=== PATIENT | female | born 1950 | race Hispanic/Latino ===

== ENCOUNTER → 2018-01-10 | Outpatient (CLI) | payer BC ==
[~2018-01-10] MED LIST: CLONAZEPAM1 MG PO; METFORMIN HCL500 MG PO; PREMPRO 0.3 MG1 EACH PO; VIT D PO
--- NOTE | 2018-01-17 08:35 | Diagnostic Imaging Report ---
#[id number] - MGSCRBIL #BILATERAL DIGITAL SCREENING MAMMOGRAM WITH CAD: 01/10/2018 CLINICAL: Routine screening. Comparison is made to exams dated: 01/05/2017 mammogram and 12/11/2014 mammogram - [facility]. Current study contains 4 films. The tissue of both breasts is predominantly fatty. Current study was also evaluated with a Computer Aided Detection (CAD) system. There are benign lymph nodes in both breasts. There also is a benign calcification in the left breast. No significant masses, calcifications, or other findings are seen in either breast. There has been no significant interval change. IMPRESSION: BENIGN There is no mammographic evidence of malignancy. A 1 year screening mammogram is recommended. The patient will be notified by letter of the results. 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
== END ==
LOC: MAMMO 13:48
PROVIDERS: ATTEND Internal Medicine
DX: Z12.31 Encounter for screening mammogram for malignant neoplasm of breast (principal)
CPT/HCPCS: 77067

== ENCOUNTER → 2018-01-28 | Outpatient (CLI) | payer SELFPAY ==
[~2018-01-28] MED LIST changes: +IOPAMIDOL 370 MG/ML 200 ML INFUS..BTL INJ ONE; +SODIUM CHLORIDE 0.9% 50ML 50 ML ONE
[2018-01-28 18:42] LABS: BLOOD UREA NITROGEN 9 mg/dL (7-26); BUN/CREATININE RATIO 12 (6-25); CREATININE, SERUM 0.73 mg/dL (0.57-1.11); EST GLOMERULAR FILTRATION RATE > 60 ML/MIN (60-)
--- NOTE | 2018-01-28 23:45 | Diagnostic Imaging Report ---
EXAM: CT ABDOMEN W DATE: 01/28/2018 5:04 PM Time stamp on Exam: 1901 hours INDICATION: Elevated LFTs, right upper quadrant pain COMPARISON: CT of the abdomen and pelvis September 21, 2015 TECHNIQUE: The abdomen was scanned using a multidetector helical scanner. Coronal and sagittal reformations were obtained. Dose modulation, iterative reconstruction, and/or weight based adjustment of the mA/kV was utilized to reduce the radiation dose to as low as reasonably achievable. Routine protocol performed. IV Contrast: 100 cc Isovue-370 Oral Contrast: Water CTDIvol has been reviewed. It is below the limits set by the Radiation Protocol Committee (RPC). FINDINGS: LOWER THORAX: Stable hypodensities in the medial segment of the lobe left lobe of the liver measuring 6 mm and 9 mm. Stable hypodensities in the posterior inferior right lobe of the liver measuring 6 mm and 1.2 cm. LIVER: No masses BILIARY: The gallbladder is unremarkable. No ductal dilation. SPLEEN: No masses PANCREAS: No masses ADRENALS: Stable very mild thickening of the left adrenal gland. KIDNEYS: Symmetrically perfused. No hydronephrosis. No enhancing masses. GI TRACT: No distention, wall thickening or evidence of obstruction in the partially visualized bowel. VESSELS: Unremarkable PERITONEUM/RETROPERITONEUM: No free air or fluid LYMPH NODES: No lymphadenopathy SOFT TISSUES: Unremarkable BONES: No suspicious bone lesions. IMPRESSION: No interval change in appearance of the abdomen since prior CT in 2015. Signed by: Dr. Mala Raymundo M.D. on 01/28/2018 11:41 PM
== END ==
LOC: CT 16:41
PROVIDERS: ATTEND Internal Medicine
DX: K76.0 Fatty (change of) liver, not elsewhere classified (principal); R10.84 Generalized abdominal pain; R10.11 Right upper quadrant pain; R76.8 Other specified abnormal immunological findings in serum; R74.8 Abnormal levels of other serum enzymes
CPT/HCPCS: 36415; 74160; 82565; 84520; Q9967

== ENCOUNTER 2018-06-16 20:07 | Emergency (ER) | payer BC ==
[~2018-06-16] VITALS: Ht 160 cm; Wt 84.8 kg
[~2018-06-16 20:07] MED LIST changes: -IOPAMIDOL 370 MG/ML 200 ML INFUS..BTL INJ ONE; -SODIUM CHLORIDE 0.9% 50ML 50 ML ONE
--- OUTSIDE RECORDS SUMMARY | 2018-06-16 20:11 | XMS REPORT | Summary of Care ---
Author Author [facility] Address Unknown Phone Unavailable Encounter HQ Leisa(FIN) [id number] Date(s): 07/21/17 - 07/21/17 [facility] [address] [place] [place] [address], [address] [place] [address]- [phone] Attending Physician: Tiffanie Rosales MD Vital Signs No data available for this section Problem List Condition Effective Dates Status Health Status Informant Acute UTI(Confirmed) Active Benign essential Active HTN(Confirmed) Breast cancer Active screening(Confirmed) Pap smear for < 08/27/16 Resolved cervical cancer screening(Confirmed) B12 Active deficiency(Confirmed ) Low serum vitamin Active D(Confirmed) Diabetes mellitus Active type 2(Confirmed)1 DM type 2 with Active diabetic peripheral neuropathy(Confirmed ) Disorder of vision2 01/31/14 Active Diverticular disease 04/13/13 Active of colon3 Fatigue4 03/21/13 Active S/P total knee Active replacement(Confirme d) Hyperlipidemia5 03/21/13 Active Liver cyst6 01/31/14 Active Abnormal liver Active enzymes(Confirmed) Mild major Active depression(Confirmed ) Mixed anxiety and 03/21/13 Active depressive disorder7 Hyperlipidemia, < 08/27/16 Resolved mixed(Confirmed) Yeast Active infection(Confirmed) Obesity8 10/12/13 Active Onychomycosis(Confir Active med) DJD (degenerative Active joint disease)(Confirmed) Osteopenia9, 10 06/15/14 Active Annual physical Active exam(Confirmed) Preoperative Active clearance(Confirmed) Colon cancer Active screening(Confirmed) Sleep apnea11 03/21/13 Active Steatosis of liver12 01/31/14 Active Type 2 diabetes 03/21/13 Resolved [id number] Vaginal Active irritation(Confirmed ) 1Automatically added by Discern Expert with order of Add Problem Diabetes Type II on December 02, 2016 11:54:47 CDT with order ID: [id number] entered by Tiffanie Rosales. 2Data migrated from [employer] on 07/28/14. 3Data migrated from [employer] on 07/28/14. 4Data migrated from [employer] on 07/28/14. 5Data migrated from [employer] on 07/28/14. 6Data migrated from [employer] on 07/28/14. 7Data migrated from [employer] on 07/28/14. 8Data migrated from [employer] on 07/28/14. 9Data migrated from [employer] on 09/05/14. 10Data migrated from [employer] on 07/31/14. 11Data migrated from [employer] on 07/28/14. 12Data migrated from [employer] on 07/28/14. 13Data migrated from [employer] on 07/28/14. Allergies, Adverse Reactions, Alerts Substance Reaction Severity Status NKDA Active Medications No data available for this section Results No data available for this section Immunizations Given and Recorded Vaccine Date Status Refusal Reason influenza virus vaccine, inactivated 12/09/16 Given influenza virus vaccine, inactivated 12/14/14 Given influenza virus vaccine, inactivated1 04/13/13 Given pneumococcal 23-valent vaccine 12/04/15 Recorded Hx influenza vaccine-unspecified2 04/13/13 Given 1Result Comment: fluzone (>3 yrs.) [[id number]]. Migrated from OBS ; Data migrated from [employer] on 04/02/2015. 2Result Comment: done. Migrated from OBS ; Data migrated from [employer] on 04/02/2015. Procedures Procedure Date Related Diagnosis Body Site Status Mammogram 12/11/14 Completed Papanicolaou smear taken 12/10/14 Completed Examination of foot 06/15/14 Completed Nail operations1 04/2014 Completed Eye examination2 03/2014 Completed Bone density scan3 11/2013 Completed Nasal operation4 08/2013 Completed Colonoscopy5, 6 04/2009 Completed 1right toe ingrown nail 2per patient 3osteopenia at [facility] [address] [place] [address] 5Angioectasia, diverticulosis, internal hemorroids @ Dr. Temple 6Repeat 2019 Social History Social History Type Response Substance Abuse Use: None. 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 Alcohol Never Smoking Status Never smoker; Exposure to Tobacco Smoke None; Cigarette Smoking Last 365 Days No; Reg Smoking Cessation Counseling No entered on: 04/22/17 1none Assessment and Plan No data available for this section
--- OUTSIDE RECORDS SUMMARY | 2018-06-16 20:11 | XMS REPORT | Summary of Care ---
Author Author [facility] Organization [facility] Address Unknown Phone Unavailable Encounter HQ Leisa(FIN) [id number] Date(s): 04/09/17 - 04/09/17 [facility] [address] [place] [address], [address] [place] [address]- [phone] Attending Physician: Tiffanie Rosales MD Vital Signs [...] 01/31/14 Active Type 2 diabetes 03/21/13 Resolved [id number] Vaginal Active irritation(Confirmed ) 1Automatically added by Discern Expert with order of Add Problem Diabetes Type II on December 02, 2016 11:54:47 CDT with order ID: [id number] entered by Tiffanie Rosales. 2Data migrated from [...] 04/13/13 Given 1Result Comment: fluzone (>3 yrs.) [[id number]]. Migrated from OBS ; Data migrated from [...] toe ingrown nail 2per patient 3osteopenia at [facility] [address] [place] [address] 5Angioectasia, diverticulosis, internal hemorroids @ Dr. Temple 6Repeat 2019 Social History Social History Type Response Substance Abuse Use: None. 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 Alcohol Never Smoking Status Never smoker; Exposure to Tobacco Smoke None; Cigarette Smoking Last 365 Days No; Reg Smoking Cessation Counseling No entered on: 04/22/17 1none Assessment and Plan No data available for this section
--- OUTSIDE RECORDS SUMMARY | 2018-06-16 20:11 | XMS REPORT | Continuity of Care Document ---
Author Author [facility] Address Unknown Phone Unavailable Problems Problem Status Onset Date Classification Date Reported Comments Source Pap smear for cervical cancer screening Resolved 08/27/2016 Problem 05/13/2018 [facility] Osteopenia<sup>9, 10</sup> Active 06/15/2014 Problem 05/13/2018 Data migrated from [employer] on 07/31/14. [facility] Disorder of vision<sup>2</sup> Active 01/31/2014 Problem 05/13/2018 Data migrated from [employer] on 07/28/14. [facility] Liver cyst<sup>6</sup> Active 01/31/2014 Problem 05/13/2018 Data migrated from [employer] on 07/28/14. [facility] Steatosis of liver<sup>12</sup> Active 01/31/2014 Problem 05/13/2018 Data migrated from [employer] on 07/28/14. [facility] Obesity<sup>8</sup> Active 10/12/2013 Problem 05/13/2018 Data migrated from [employer] on 07/28/14. [facility] Diverticular disease of colon<sup>3</sup> Active 04/13/2013 Problem 05/13/2018 Data migrated from [employer] on 07/28/14. [facility] Fatigue<sup>4</sup> Active 03/21/2013 Problem 05/13/2018 Data migrated from [employer] on 07/28/14. [facility] Hyperlipidemia<sup>5</sup> Active 03/21/2013 Problem 05/13/2018 Data migrated from [employer] on 07/28/14. [facility] Mixed anxiety and depressive disorder<sup>7</sup> Active 03/21/2013 Problem 05/13/2018 Data migrated from [employer] on 07/28/14. [facility] Sleep apnea<sup>11</sup> Active 03/21/2013 Problem 05/13/2018 Data migrated from [employer] on 07/28/14. [facility] Type 2 diabetes mellitus<sup>13</sup> Resolved 03/21/2013 Problem 05/13/2018 Data migrated from [employer] on 07/28/14. [facility] 864.11 - LIVER HEMATOM/C Active 12/02/2010 [facility] [place] Hyperlipidemia, mixed Active Problem 05/13/2018 [facility] Acute UTI Active Problem 05/13/2018 [facility] Benign essential HTN Active Problem 05/13/2018 [facility] Breast cancer screening Active Problem 05/13/2018 [facility] B12 deficiency Active Problem 05/13/2018 [facility] Low serum vitamin D Active Problem 05/13/2018 [facility] Diabetes mellitus type 2<sup>1</sup> Active Problem 05/13/2018 Automatically added by Discern Expert with order of Add Problem Diabetes Type II on December 02, 2016 11:54:47 CDT with order ID: [id number] entered by Tiffanie Rosales. [facility] DM type 2 with diabetic peripheral neuropathy Active Problem 05/13/2018 [facility] S/P total knee replacement Active Problem 05/13/2018 [facility] Abnormal liver enzymes Active Problem 05/13/2018 [facility] Mild major depression Active Problem 05/13/2018 [facility] Yeast infection Active Problem 05/13/2018 [facility] Onychomycosis Active Problem 05/13/2018 [facility] DJD (<span ID="[id number]">Confirmed</span>) Active Problem 05/13/2018 [facility] Preoperative clearance Active Problem 05/13/2018 [facility] Vaginal irritation Active Problem 05/13/2018 [facility] Non-alcoholic fatty liver disease Active Problem 05/13/2018 [facility] Elevated antinuclear antibody level(<span ID="[id number]">Confirmed</span>) Active Problem 05/13/2018 [facility] Medications Medication Details Route Status Patient Instructions Ordering Provider Order Date Source amLODIPine 5 mg oral tablet 5 mg=1 tab, PO, Daily, # 90 tab, 1 Refill(s), Pharmacy: [facility] [id number] Active 05/11/2018 [facility] glimepiride 4 mg oral tablet 4 mg=1 tab, PO, BID, # 180 tab, 1 Refill(s), Pharmacy: [facility] [id number] Active 05/11/2018 [facility] losartan 100 mg oral tablet 100 mg=1 tab, PO, Daily, # 90 tab, 1 Refill(s), Pharmacy: [facility] [address] Active 05/11/2018 [facility] Metformin hydrochloride 1000 MG Oral Tablet 1,000 mg=1 tab, PO, BID, # 180 tab, 3 Refill(s), Pharmacy: [facility] [id number] Active 05/11/2018 [facility] atorvastatin 10 mg oral tablet 10 mg=1 tab, PO, Bedtime, # 90 tab, 1 Refill(s), Pharmacy: [facility] [id number] Active 05/11/2018 [facility] mirtazapine 30 mg oral tablet 30 mg=1 tab, PO, Bedtime, # 90 tab, 0 Refill(s), Pharmacy: [facility] [id number] Active 05/11/2018 [facility] Metformin hydrochloride 1000 MG Oral Tablet 1,000 mg=1 tab, PO, BID, # 180 tab, 3 Refill(s), Pharmacy: [facility] [id number] Active 08/04/2017 [facility] mirtazapine 30 mg oral tablet 30 mg=1 tab, PO, Bedtime, # 90 tab, 1 Refill(s), Pharmacy: [facility] [id number] Active 04/22/2017 [facility] Terbinafine hydrochloride 10 MG/ML Topical Wren 1 spray, TOP, BID, X 60 day, # 125 mL, 1 Refill(s), Pharmacy: [facility] [id number] Active 04/22/2017 [facility] mirtazapine 15 mg oral tablet 15 mg=1 tab, PO, Bedtime, # 90 tab, 1 Refill(s), Pharmacy: [facility] [address] Inactive 04/22/2017 [facility] Allergies, Adverse Reactions, Alerts Substance Category Reaction Severity Reaction type Status Date Reported Comments Source Immunizations Immunization Date Given Site Status Last Updated Comments Source pneumococcal 13-valent vaccine<sup>1</sup> 05/11/2018 Left Deltoid completed Vera Result Comment: Patient tolerated well [facility] influenza virus vaccine, inactivated<sup>2</sup> 01/11/2018 Left Deltoid completed Jones Result Comment: Patient waited 15 min with no reaction. [facility] influenza virus vaccine, inactivated 12/09/2016 Right Deltoid completed [facility] pneumococcal 23-valent vaccine 12/04/2015 completed [facility] influenza virus vaccine, inactivated 12/14/2014 Right Deltoid completed [facility] Hx influenza vaccine-unspecified<sup>2</sup> 04/13/2013 completed GE Result Comment: done. Migrated from OBS ; Data migrated from [employer] on 04/02/2015. [facility] Hx influenza vaccine-unspecified<sup>4</sup> 04/13/2013 completed GE Result Comment: done. Migrated from OBS ; Data migrated from [employer] on 04/02/2015. [facility] influenza virus vaccine, inactivated<sup>1</sup> 04/13/2013 Right Deltoid completed GE Result Comment: fluzone (>3 yrs.) [[id number]]. Migrated from OBS ; Data migrated from [employer] on 04/02/2015. [facility] influenza virus vaccine, inactivated<sup>3</sup> 04/13/2013 Right Deltoid completed GE Result Comment: fluzone (>3 yrs.) [[id number]]. Migrated from OBS ; Data migrated from [employer] on 04/02/2015. [facility] Results Order Name Results Value Reference Range Date Interpretation Comments Source Vital Signs Vital Sign Value Date Comments Source BMI Calculated 34.61 05/11/2018 [facility] Height 160.02 cm 05/11/2018 [facility] Weight 88.636 05/11/2018 [facility] Respitory Rate 16 05/11/2018 [facility] Heart Rate 73 05/11/2018 [facility] Systolic (mm Hg) 155 05/11/2018 [facility] Diastolic (mm Hg) 90 05/11/2018 [facility] Temperature Oral (F) 97.0 F 05/11/2018 [facility] Weight 80.909 04/22/2017 [facility] BMI Calculated 31.6 04/22/2017 [facility] Height 160.02 cm 04/22/2017 [facility] Systolic (mm Hg) 133 04/22/2017 [facility] Diastolic (mm Hg) 85 04/22/2017 [facility] Temperature Oral (F) 97.9 F 04/22/2017 [facility] Respitory Rate 14 04/22/2017 [facility] Heart Rate 86 04/22/2017 [facility] Encounters Location Location Details Encounter Type Encounter Number Reason For Visit Attending Provider ADM Date DC Date Status Source OD [id number] 864.11 - LIVER HEMATOM/C KAHLIL SMITH 12/05/2010 12/05/2010 Active [facility] [place] Outpatient [id number] CRYSTAL STEVENS 10/12/2014 Active [facility] [id number] CRYSTAL STEVENS 12/14/2014 Active [facility] Outpatient [id number] TIFFANIE YANCEY 04/03/2015 Active [facility] Outpatient [id number] TIFFANIE YANCEY 04/10/2015 Active [facility] Outpatient [id number] CRYSTAL STEVENS 08/07/2015 Active [facility] Outpatient [id number] TIFFANIE YANCEY 08/21/2015 Active [facility] Outpatient [id number] TIFFANIE YANCEY 09/04/2015 Active [facility] Outpatient [id number] TIFFANIE YANCEY 12/04/2015 Active [facility] Outpatient [id number] TIFFANIE YANCEY 08/27/2016 Active [facility] Outpatient [id number] TIFFANIE YANCEY 09/04/2016 Active [facility] Outpatient [id number] TIFFANIE YANCEY 09/18/2016 Active [facility] Outpatient [id number] TIFFANIE YANCEY 11/10/2016 Active [facility] Outpatient [id number] TIFFANIE YANCEY 12/02/2016 Active [facility] Outpatient [id number] TIFFANIE YANCEY 12/09/2016 Active [facility] Outpatient [id number] TIFFANIE YANCEY 04/09/2017 Active [facility] Pre-Reg [id number] Tiffanie Polk 04/09/2017 04/09/2017 [facility] Outpatient [id number] TIFFANIE YANCEY 04/22/2017 Active [facility] [id number] Tiffanie Polk 04/22/2017 04/23/2017 [facility] Outpatient [id number] TIFFANIE YANCEY 07/21/2017 Active [facility] Pre-Reg [id number] Tiffanie Yancey Polk 07/21/2017 07/21/2017 Medical Group [facility] Primary [facility] Phone Message [id number] 08/04/2017 08/06/2017 [facility] Outpatient [id number] TIFFANIE YANCEY 08/19/2017 Active [facility] Primary [facility] Pre-Reg [id number] Tiffanie Yancey Polk 08/19/2017 08/19/2017 [facility] Outpatient [id number] TIFFANIE YANCEY 12/16/2017 Active [facility] Outpatient [id number] TIFFANIE YANCEY 01/11/2018 Active [facility] Outpatient [id number] TIFFANIE YANCEY 01/17/2018 Active [facility] Outpatient [id number] TIFFANIE YANCEY 02/10/2018 Active [facility] Outpatient [id number] TIFFANIE YANCEY 05/11/2018 Active [facility] [id number] Tiffanie Yancey Polk 05/11/2018 05/12/2018 [facility] Outpatient [id number] TIFFANIE YANCEY 08/12/2018 Active [facility] Procedures Procedure Code Date Perfomer Comments Source Mammogram - screening<sup>1</sup> [id number] 01/10/2018 Normal Medical [facility] Mammogram [id number] 12/11/2014 Medical [facility] Papanicolaou smear taken [id number] 12/10/2014 Medical [facility] Examination of foot [id number] 06/15/2014 [facility] Nail operations<sup>1</sup> 816701163 04/29/2014 right toe ingrown nail [facility] Nail operations<sup>2</sup> 050362766 04/29/2014 right toe ingrown nail [facility] Eye examination<sup>2</sup> 53832819 03/01/2014 per patient [facility] Eye examination<sup>3</sup> 18465866 03/01/2014 per patient [facility] Bone density scan<sup>3</sup> 405568400 11/29/2013 osteopenia at [facility] [employer] Bone density scan<sup>4</sup> [id number] 11/29/2013 osteopenia at [employer] [facility] Nasal operation<sup>4</sup> 52204756 08/29/2013 [facility] Nasal operation<sup>5</sup> 18067407 08/29/2013 [facility] Colonoscopy<sup>5, 6</sup> [id number] 04/01/2009 Angioectasia, diverticulosis, internal hemorroids @ Dr. Mata 2019 [facility] Colonoscopy<sup>6, 7</sup> [id number] 04/01/2009 Angioectasia, diverticulosis, internal hemorroids @ Dr. Mata 2019 [facility] Cataract surgery [id number] [facility]
--- OUTSIDE RECORDS SUMMARY | 2018-06-16 20:11 | XMS REPORT | Clinical Summary ---
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 Active metFORMIN (GLUCOPHAGE) TK 1 T PO BID 1 1,000 mg tablet MEALS 7 Active omega-3 acid ethyl esters TK 1 C PO TID 2 (LOVAZA) 1 gram capsule 7 Active valsartan (DIOVAN) 320 MG TK 1 T PO QD 0 tablet 7 Active hydrocortisone 1 % cream APPLY A THIN 0 LAYER AA BID 7 X 10 DAYS Active nystatin-triamcinolone APPLY 0 (MYCOLOG II) 100,000-0.1 TOPICALLY RO 7 unit/g-% cream AFFECTED AREA BID PRN Active Problems Problem Noted Date Total knee replacement status, right 12/08/2016 DM (diabetes mellitus) 11/25/2016 Essential hypertension 11/25/2016 Localized primary osteoarthritis of lower leg 11/23/2016 Chronic pain of left knee 10/15/2016 Osteoarthrosis, localized, primary, knee 10/15/2016 Resolved Problems Problem Noted Date Resolved Date Osteoarthrosis, localized, primary, knee, right 12/08/2016 09/07/2017 Encounters Care Team Description Date Type Specialty Angel Yanez MD Osteoarthrosis, localized, primary, knee, right (Primary Dx); Presence of right artificial knee joint; Total knee replacement status, right 09/07/2017 Office Visit Orthopedic Surgery after 06/15/2017 Family History Medical History Relation Name Comments Colon cancer Mother Diabetes Mother Relation Name Status Comments Mother Social History Date Tobacco Use Types Packs/Day Years Used Never Smoker Smokeless Tobacco: Never Used Alcohol Use Drinks/Week oz/Week Comments No Sex Assigned at Date Recorded Not on file Industry Job Start Date Occupation Not on file Not on file Not on file Travel End Travel History Travel Start No recent travel history available. Last Filed Vital Signs Time Taken Vital Sign Reading - Blood Pressure - - Pulse - - Temperature - - Respiratory Rate - - Oxygen Saturation - - Inhaled Oxygen - Concentration 09/07/2017 10:06 AM CDT Weight 84.4 kg (186 lb) 09/07/2017 10:06 AM CDT Height 160 cm (5' 3") 09/07/2017 10:06 AM CDT Body Mass Index 32.95 Plan of Treatment Health Maintenance Due Date Last Done Comments DIABETIC RETINAL EYE EXAM 1950 DIABETIC FOOT EXAM 1962 URINE MICROALBUMIN 1962 CERVICAL CANCER SCREENING 1973 BREAST CANCER SCREENING 2002 COLON CANCER SCREENING 2002 SHINGLES VACCINES (#1) 2002 65+ PNEUMOCOCCAL VACCINE 2017 (1 of 2 - PCV13) PNEUMOCOCCAL 2017 POLYSACCHARIDE VACCINE AGE 65 AND OVER INFLUENZA VACCINE 09/29/2018 Implants Device Identifier Shelf Expiration Date Model / Serial / Lot Implanted Type Area Manufactur er 10/24/2025 [id number] / / Screw Bone Headed Mis 48mm - Hip Joint Right: Knee [employer] [id number] Implants Implanted: Qty: 1 on 11/23/2016 by Angel Yanez MD 03/31/2025 [id number] / / Screw Bone Headed Mis 48mm - Hip Joint Right: Knee [employer] [id number] Implants Implanted: Qty: 1 on 11/23/2016 by Angel Yanez MD 11/28/2025 [id number] / / Screw Bone Headed Mis 48mm - Hip Joint Right: Knee [employer] [id number] Implants Implanted: Qty: 1 on 11/23/2016 by Angel Yanez MD 07/29/2020 [id number] / / [id number] Psn Asf Ps 10mm Ve R 6-9 Cd IPM Right: Knee [employer] - [id number] IMPLANT Implanted: Qty: 1 on 11/23/2016 by DEVICES Angel Yanez MD 10/29/2026 [id number] Tri Tib Cmt Stm 5 Deg Sz D R, IPM Right: Knee [employer] Persona Knee Joint Implant - IMPLANT [id number] DEVICES Implanted: Qty: 1 on 11/23/2016 by Angel Yanez MD 07/29/2021 [id number] / / [id number] All Poly Pat Ve 32 Mm Ly - IPM Right: Knee [employer] [id number] IMPLANT Implanted: Qty: 1 on 11/23/2016 by DEVICES Angel Yanez MD 08/28/2025 [id number] Tri Fem Ps Cmt Ccr Cla Sz 6 R, IPM N/A: Knee [employer] Persona Knee Joint Implant - IMPLANT [id number] DEVICES Implanted: Qty: 1 on 11/23/2016 by Angel Yanez MD 04/28/2020 [id number] / / [id number] Cement Bone R+G 1dose Palacos - Knee Joint Right: Knee [employer] [id number] Implants Implanted: Qty: 1 on 11/23/2016 by Angel Yanez MD 04/28/2020 [id number] / / [id number] Cement Bone R+G 1dose Palacos - Knee Joint Right: Knee [employer] [id number] Implants Implanted: Qty: 1 on 11/23/2016 by Angel Yaenz MD 04/14/2018 [id number] / / Matrix Hmstc Floseal 5ml W/ Humn F2 Surgical N/A: N/A MORA - [id number] Implants; BIOSCIENCE Implanted: Qty: 1 on 11/23/2016 by Expanders; Angel Yanez MD Extenders; Surgical Wires Procedures Comments Procedure Name Priority Date/Time Associated Diagnosis XR KNEE 1 OR 2 VW RIGHT Routine 09/07/2017 Osteoarthrosis, 10:11 AM CDT localized, primary, knee, right Presence of right artificial knee joint after 06/15/2017 Results * XR Knee 1 Or 2 Vw Right (09/07/2017 10:11 AM CDT) Narrative Performed At [facility] Right total knee replacement in satisfactory position Performing Organization Address City/State/Zipcode Phone Number CARMELA GORMAN [address] [place] [address] after 06/15/2017 Insurance Payer Benefit Subscriber ID Type Phone Address Plan / Group BCBS BCBS xxxxxxxxxxxx PPO CHOICE PPO/MAMADOU PRITCHETT PPO Advance Directives Patient has advance care planning documents, and code status on file. For more i nformation, please contact: Gerardo Swartz [address] [place] [address] Date Inactivated Comments Code Status Date Activated 11/25/2016 6:55 PM Full Code 11/23/2016 1:15 PM Code Status decision reached by: Patient
--- OUTSIDE RECORDS SUMMARY | 2018-06-16 20:11 | XMS REPORT | Summary of Care ---
Author Author [facility] Organization [facility] Address Unknown Phone Unavailable Encounter HQ Leisa(FIN) [id number] Date(s): 04/22/17 - 04/22/17 [facility] [address] [place] [address], [address] [place] [address]- [phone] Discharge Disposition: Home or Self Care Attending Physician: Tiffanie Rosales MD Vital Signs Most recent to 1 oldest [Reference Range]: Height 160.02 cm (04/22/17 8:04 AM) Temperature Oral 97.9 DegF [96.4-99.1 DegF] (04/22/17 8:04 AM) Blood Pressure 133/85 mmHg [90-140/60-90 mmHg] (04/22/17 8:04 AM) Respiratory Rate 14 BRMIN [14-20 BRMIN] (04/22/17 8:04 AM) Peripheral Pulse 86 bpm Rate [60-100 bpm] (04/22/17 8:04 AM) Weight 80.909 kg (04/22/17 8:04 AM) Body Mass Index 31.6 m2 (04/22/17 8:04 AM) Problem List Condition Effective Dates Status Health [...] 01/31/14 Active Type 2 diabetes 03/21/13 Resolved [id number] Vaginal Active irritation(Confirmed ) 1Automatically added by Discern Expert with order of Add Problem Diabetes Type II on December 02, 2016 11:54:47 CDT with order ID: [id number] entered by Tiffanie Rosales. 2Data migrated from [...] Substance Reaction Severity Status NKDA Active Medications mirtazapine 15 mg oral tablet 15 mg=1 tab, PO, Bedtime, # 90 tab, 1 Refill(s), [facility]acy: [id number] Start Date: 04/22/17 Stop Date: 04/22/17 Status: Discontinued mirtazapine 30 mg oral tablet 30 mg=1 tab, PO, Bedtime, # 90 tab, 1 Refill(s), Pharmacy: [id number] Start Date: 04/22/17 Stop Date: 10/19/17 Status: Ordered terbinafine topical 1% spray 1 spray, TOP, BID, X 60 day, # 125 mL, 1 Refill(s), [facility] [place] [id number] Start Date: 04/22/17 Stop Date: 08/20/17 Status: Ordered Results No data available for this section Immunizations Given and Recorded Vaccine Date Status Refusal Reason influenza virus vaccine, inactivated 12/09/16 Given influenza virus vaccine, inactivated 12/14/14 Given influenza virus vaccine, inactivated1 04/13/13 Given pneumococcal 23-valent vaccine 12/04/15 Recorded Hx influenza vaccine-unspecified2 04/13/13 Given 1Result Comment: fluzone (>3 yrs.) [[id number]]. Migrated from OBS ; Data migrated from [employer] on 04/02/2015. 2Result Comment: done. Migrated from OBS ; Data migrated from [employer] on 04/02/2015. Procedures Procedure Date Related Diagnosis Body Site Status Mammogram 12/11/14 Completed Papanicolaou smear taken 12/10/14 Completed Examination of foot 06/15/14 Completed Nail operations1 04/2014 Completed Eye examination2 03/2014 Completed Bone density scan3 11/2013 Completed Nasal operation4 08/2013 Completed Colonoscopy5, 6 04/2009 Completed 1right toe ingrown nail 2per patient 3osteopenia at [facility] [address] [place] [address] 5Angioectasia, diverticulosis, internal hemorroids @ Dr. Temple 6Repeat 2019 Social History Social History Type Response Substance Abuse Use: None. 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 Alcohol Never Smoking Status Never smoker; Exposure to Tobacco Smoke None; Cigarette Smoking Last 365 Days No; Reg Smoking Cessation Counseling No entered on: 04/22/17 1none Assessment and Plan No data available for this section
--- OUTSIDE RECORDS SUMMARY | 2018-06-16 20:12 | XMS REPORT ---
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 Allergies, Adverse Reactions, Alerts This patient has no known allergies or adverse reactions. Medications This patient has no known medications. Results Test Description Test Time Test Comments Text Results Atomic Results Result Comments CT ABDOMEN W 2018-01-28 23:35:00 [place] [address] Patient Name: SAUL TELLEZ MR #: [id number] : 1950 Age/Sex: 67/F Req #: [id number] Adm Physician: Ordered by: DEMARCUS GUZMAN M.D. Report #: [id number] Location: CT Room/Bed: Procedure: [id number] CT/CT ABDOMEN W Exam Date: 01/28/18 Exam Time: 1850 REPORT STATUS: Signed EXAM: CT ABDOMEN W DATE: 01/28/2018 5:04 PM Time stamp on Exam: 1901 hours INDICATION: Elevated LFTs, right upper quadrant pain COMPARISON: CT of the abdomen and pelvis September 21, 2015 TECHNIQUE: The abdomen was scanned using a multidetector helical scanner. Coronal and sagittal reformations were obtained. Dose modulation, iterative reconstruction, and/or weight based adjustment of the mA/kV was utilized to reduce the radiation dose to as low as reasonably achievable. Routine protocol performed. IV Contrast: 100 cc Isovue-370 Oral Contrast: Water CTDIvol has been reviewed. It is below the limits set by the Radiation Protocol Committee (RPC). FINDINGS: LOWER THORAX: Stable hypodensities in the medial segment of the lobe left lobe of the liver measuring 6 mm and 9 mm. Stable hypodensities in the posterior inferior right lobe of the liver measuring 6 mm and 1.2 cm. LIVER: No masses BILIARY: The gallbladder is unremarkable. No ductal dilation. SPLEEN: No masses PANCREAS: No masses ADRENALS: Stable very mild thickening of the left adrenal gland. KIDNEYS: Symmetrically perfused. No hydronephrosis. No enhancing masses. GI TRACT: No distention, wall thickening or evidence of obstruction in the partially visualized bowel. VESSELS: Unremarkable PERITONEUM/RETROPERITONEUM: No free air or fluid LYMPH NODES: No lymphadenopathy SOFT TISSUES: Unremarkable BONES: No s uspicious bone lesions. IMPRESSION: No interval change in appearance of the abdomen since prior CT in 2016. Signed by: Dr. Trae Raymundo M.D. on 01/28/2018 11:41 PM Dictated By: TRAE RAYMUNDO MD 40 Transcribed By: FUNMILAYO on 01/28/182340 COPY TO: DEMARCUS GUZMAN M.D. MAMMOGRAPHY DIGITAL SCR BILAT 2018-01-10 15:36:00 [place] [address] Patient Name: SAUL TELLEZ MR #: [id number] : 1950 Age/Sex: 67/F Req #: [id number] Adm Physician: Ordered by: DEMARCUS GUZMAN M.D. Report #: [id number] Location: [facility] Room/Bed: Procedure: [id number] MG/MAMMOGRAPHY DIGITAL SCR BILAT Exam Date: 01/10/18 Exam Time: 1500 REPORT STATUS: Signed #[id number] - MGSCRBIL #BILATERAL DIGITAL SCREENING MAMMOGRAM WITH CAD: 01/10/2018 CLINICAL: Routine screening. Comparison is made to exams dated: 01/05/2017 mammogram and 12/11/2014 mammogram - [facility]. Current study contains 4 films. The tissue of both breasts is predominantly fatty. Current study was also evaluated with a Computer Aided Detection (CAD) system. There are benign ly mph nodes in both breasts. There also is a benign calcification in the left breast. No significant masses, calcifications, or other findings are seen in either breast. There has been no significant interval change. IMPRESSION: BENIGN There is no mammographic evidence of malignancy. A 1 year screening mammogram is recommended. The patient will be notified by letter of the results. Shu alexis/graciela:01/14/2018 12:18:35 Donor Recruitment Manager: Kalani LYLES(R)(M), [facility] letter sent: Compared to Prior B9 Mammogram BI- RADS: 2 Benign Dictated By: SHU CARTER DO 1218 Transcribed By: GRACIELA on 01/14/18 1218 COPY TO: DEMARCUS GUZMAN M.D. MAMMOGRAPHY DIGITAL SCR BILAT [place] [address] Patient Name: SAUL TELLEZ MR #: [id number] : 1950 Age/Sex: 66/F Req #: [id number] [facility] Physician: Ordered by: BROCK ROSARIO MD Report #: [id number] Location: MAMMO Room/Bed: Procedure: [id number] MG/MAMMOGRAPHY DIGITAL SCR BILAT Exam Date: 01/05/17 Exam Time: 1046 REPORT STATUS: Signed #[id number] - MGSCRBIL #BILATERAL DIGITAL SCREENING MAMMOGRAM WITH CAD: 01/05/2017 CLINICAL: Routine screening. Comparison is made to exams dated: 01/07/2016 mammogram, 12/11/2014 mammogram and 12/08/2013 mammogram - [facility]. Current study contains 5 films. The tissue of both breasts is predominantly fatty. Current study was also evaluated with a Computer Aided Detection (CAD) system. There are benign lymph nodes in both breasts. There also is a benign calcification in the left breast. No significant masses, calcifications, or other findings are seen in either breast. There has been no significant interval change. IMPRESSION: BENIGN There is no mammographic evidence of malignancy. A 1 year screening mammogram is recommended. The patient will be notified by letter of the results. Shu alexis/graciela:01/05/2017 13:55:33 Donor Recruitment Manager: Kalani LYLES(R)(M), [facility] letter sent: Compared to Prior B9 Mammogram BI-RADS: 2 Benign Dictated By: SHU CARTER DO 1352 Transcribed By: GRACIELA on 01/05/17 6701 COPY TO: BEV ROSARIO MD
--- OUTSIDE RECORDS SUMMARY | 2018-06-16 20:12 | XMS REPORT | Summary of Care ---
Author Author [facility] Organization [facility] Address Unknown Phone Unavailable Encounter HQ Leisa(FIN) [id number] Date(s): 08/04/17 - 08/05/17 [facility] [address] [facility], [address] [place] [address]- [phone] Vital Signs No data available for this [...] 01/31/14 Active Type 2 diabetes 03/21/13 Resolved [id number] Vaginal Active irritation(Confirmed ) 1Automatically added by Discern Expert with order of Add Problem Diabetes Type II on December 02, 2016 11:54:47 CDT with order ID: [id number] entered by Tiffanie Rosales. 2Data migrated from [...] Substance Reaction Severity Status NKDA Active Medications metFORMIN 1000 mg oral tablet 1,000 mg=1 tab, PO, BID, # 180 tab, 3 Refill(s), Pharmacy: [id number] Start Date: 08/04/17 Stop Date: 07/30/18 Status: Ordered Results No data available for this section Immunizations Given and Recorded Vaccine Date Status Refusal Reason influenza virus vaccine, inactivated 12/09/16 Given influenza virus vaccine, inactivated 12/14/14 Given influenza virus vaccine, inactivated1 04/13/13 Given pneumococcal 23-valent vaccine 12/04/15 Recorded Hx influenza vaccine-unspecified2 04/13/13 Given 1Result Comment: fluzone (>3 yrs.) [[id number]]. Migrated from OBS ; Data migrated from [...] toe ingrown nail 2per patient 3osteopenia at [facility] 5Angioectasia, diverticulosis, internal hemorroids @ Dr. Temple 6Repeat 2019 Social History Social History Type Response Substance Abuse Use: None. 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 Alcohol Never Smoking Status Never smoker; Exposure to Tobacco Smoke None; Cigarette Smoking Last 365 Days No; Reg Smoking Cessation Counseling No entered on: 04/22/17 1none Assessment and Plan No data available for this section
--- OUTSIDE RECORDS SUMMARY | 2018-06-16 20:12 | XMS REPORT | Summary of Care ---
Author Author [facility] Organization [facility] Address Unknown Phone Unavailable Encounter HQ Leisa(FIN) [id number] Date(s): 05/11/18 - 05/11/18 [facility] [address] [place] [address], [address] [place] [address]- [phone] Discharge Disposition: Home or Self Care Attending Physician: Tiffanie Rosales MD Vital Signs Most recent to 1 oldest [Reference Range]: Height 160.02 cm (05/11/18 7:46 AM) Temperature Oral 97.0 DegF [96.4-99.1 DegF] (05/11/18 7:46 AM) Blood Pressure 155/90 mmHg [90-140/60-90 mmHg] *HI* (05/11/18 7:46 AM) Respiratory Rate 16 BRMIN [14-20 BRMIN] (05/11/18 7:46 AM) Peripheral Pulse 73 bpm Rate [60-100 bpm] (05/11/18 7:46 AM) Weight 88.636 kg (05/11/18 7:46 AM) Body Mass Index 34.61 m2 (05/11/18 7:46 AM) Problem List Condition Effective Dates Status [...] anxiety and 03/21/13 Active depressive disorder7 Hyperlipidemia, Active mixed(Confirmed) Yeast Active infection(Confirmed) Non-alcoholic fatty Active liver disease(Confirmed) Obesity8 10/12/13 Active Onychomycosis(Confir Active med) DJD (degenerative Active joint disease)(Confirmed) Osteopenia9, 10 06/15/14 Active Annual physical Active exam(Confirmed) Preoperative Active clearance(Confirmed) Elevated antinuclear Active antibody (RYAN) level(Confirmed) Colon cancer Active screening(Confirmed) Sleep apnea11 03/21/13 Active Steatosis of liver12 01/31/14 Active Type 2 diabetes 03/21/13 Resolved [id number] Vaginal Active irritation(Confirmed ) 1Automatically added by Discern Expert with order of Add Problem Diabetes Type II on December 02, 2016 11:54:47 CDT with order ID: [id number] entered by Tiffanie Rosales. 2Data migrated from [...] Substance Reaction Severity Status NKDA Active Medications amLODIPine 5 mg oral tablet 5 mg=1 tab, PO, Daily, # 90 tab, 1 Refill(s), Pharmacy: [id number] Start Date: 05/11/18 Stop Date: 11/07/18 Status: Ordered atorvastatin 10 mg oral tablet 10 mg=1 tab, PO, Bedtime, # 90 tab, 1 Refill(s), Pharmacy: [id number] Start Date: 05/11/18 Status: Ordered glimepiride 4 mg oral tablet 4 mg=1 tab, PO, BID, # 180 tab, 1 Refill(s), Pharmacy: [facility] [id number] Start Date: 05/11/18 Stop Date: 11/07/18 Status: Ordered losartan 100 mg oral tablet 100 mg=1 tab, PO, Daily, # 90 tab, 1 Refill(s), Pharmacy: [facility] [id number] Start Date: 05/11/18 Stop Date: 11/07/18 Status: Ordered metFORMIN 1000 mg oral tablet 1,000 mg=1 tab, PO, BID, # 180 tab, 3 Refill(s), Pharmacy: [facility] [id number] Start Date: 05/11/18 Stop Date: 05/06/19 Status: Ordered mirtazapine 30 mg oral tablet 30 mg=1 tab, PO, Bedtime, # 90 tab, 0 Refill(s), Pharmacy: [facility] [id number] Start Date: 05/11/18 Stop Date: 08/09/18 Status: Ordered Results No data available for this section Immunizations Given and Recorded Vaccine Date Status Refusal Reason pneumococcal 13-valent vaccine1 05/11/18 Given influenza virus vaccine, inactivated2 01/11/18 Given influenza virus vaccine, inactivated 12/09/16 Given influenza virus vaccine, inactivated 12/14/14 Given influenza virus vaccine, inactivated3 04/13/13 Given pneumococcal 23-valent vaccine 12/04/15 Recorded Hx influenza vaccine-unspecified4 04/13/13 Given 1Result Comment: Patient tolerated well 2Result Comment: Patient waited 15 min with no reaction. 3Result Comment: fluzone (>3 yrs.) [[id number]]. Migrated from OBS ; Data migrated from [employer] on 04/02/2015. 4Result Comment: done. Migrated from OBS ; Data migrated from [employer] on 04/02/2015. Procedures Procedure Date Related Diagnosis Body Site Status Mammogram - screening1 01/10/18 Completed Mammogram 12/11/14 Completed Papanicolaou smear taken 12/10/14 Completed Examination of foot 06/15/14 Completed Nail operations2 04/2014 Completed Eye examination3 03/2014 Completed Bone density scan4 11/2013 Completed Nasal operation5 08/2013 Completed Colonoscopy6, 7 04/2009 Completed Cataract surgery Completed 1Normal 2right toe ingrown nail 3per patient 4osteopenia at [facility] CL[facility] [address] [place] [address] 6Angioectasia, diverticulosis, internal hemorroids @ Dr. Temple 7Repeat 2019 Social History Social History Type Response Substance Abuse Use: None. 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 Alcohol Never Smoking Status Never smoker; Exposure to Tobacco Smoke None; Cigarette Smoking Last 365 Days No; Reg Smoking Cessation Counseling No entered on: 05/11/18 1none Assessment and Plan No data available for this section
--- OUTSIDE RECORDS SUMMARY | 2018-06-16 20:12 | XMS REPORT | Summary of Care ---
Author Author [facility] Organization [facility] Address Unknown Phone Unavailable Encounter HQ Leisa(FIN) [id number] Date(s): 04/09/17 - 04/09/17 [facility] [address] [place] [address], [address] [place] [address]- [phone] Attending Physician: Tiffanie Rosales MD Vital Signs [...] 01/31/14 Active Type 2 diabetes 03/21/13 Resolved [id number] Vaginal Active irritation(Confirmed ) 1Automatically added by Discern Expert with order of Add Problem Diabetes Type II on December 02, 2016 11:54:47 CDT with order ID: [id number] entered by Tiffanie Rosales. 2Data migrated from [...] 04/13/13 Given 1Result Comment: fluzone (>3 yrs.) [[id number]]. Migrated from OBS ; Data migrated from [...] toe ingrown nail 2per patient 3osteopenia at [employer] [address] [place] [address] 5Angioectasia, diverticulosis, internal hemorroids @ Dr. Temple 6Repeat 2019 Social History Social History Type Response Substance Abuse Use: None. 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 Alcohol Never Smoking Status Never smoker; Exposure to Tobacco Smoke None; Cigarette Smoking Last 365 Days No; Reg Smoking Cessation Counseling No entered on: 04/22/17 1none Assessment and Plan No data available for this section
--- OUTSIDE RECORDS SUMMARY | 2018-06-16 20:12 | XMS REPORT | Summary of Care ---
Author Author [facility] Organization [facility] Address Unknown Phone Unavailable Encounter HQ Leisa(FIN) [id number] Date(s): 08/19/17 - 08/19/17 [facility] [address] [place] [address], [address] [place] [address]- [phone] Attending Physician: Tiffanie Rosales MD Vital Signs [...] 01/31/14 Active Type 2 diabetes 03/21/13 Resolved [id number] Vaginal Active irritation(Confirmed ) 1Automatically added by Discern Expert with order of Add Problem Diabetes Type II on December 02, 2016 11:54:47 CDT with order ID: [id number] entered by Tiffanie Rosales. 2Data migrated from [...] 04/13/13 Given 1Result Comment: fluzone (>3 yrs.) [[id number]]. Migrated from OBS ; Data migrated from [...] toe ingrown nail 2per patient 3osteopenia at [facility] [employer] [address] [place] [address] 5Angioectasia, diverticulosis, internal hemorroids @ Dr. Temple 6Repeat 2019 Social History Social History Type Response Substance Abuse Use: None. 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 Alcohol Never Smoking Status Never smoker; Exposure to Tobacco Smoke None; Cigarette Smoking Last 365 Days No; Reg Smoking Cessation Counseling No entered on: 04/22/17 1none Assessment and Plan No data available for this section
[2018-06-16] MEDS ORDERED: CLONIDINE HCL 0.1 MG TAB PO NR (20:45)
[2018-06-16 21:08] LABS: RED BLOOD COUNT 4.49 x10e6/uL (3.6-5.1)
[2018-06-16 21:09] LABS: EOSINOPHILS % 6.5 % (0.0-6.0); HEMATOCRIT 41.5 % (34.2-44.1); HEMOGLOBIN 14.1 g/dL (12.0-16.0); LYMPHOCYTES % 41.6 % (18.0-39.1); MEAN CORPUSCULAR HEMOGLOBIN 31.4 pg (28-32); MEAN CORPUSCULAR VOLUME 92.4 fL (81-99); MONOCYTES % 5.1 % (4.4-11.3); NEUTROPHILS % 45.8 % (38.7-80.0); PLATELET COUNT 208 x10e3/uL (140-360); RED CELL DISTRIBUTION WIDTH 12.1 % (11.7-14.4)
[2018-06-16 21:10] LABS: BASOPHILS # (AUTO) 0.1 (0.0-0.1); BASOPHILS % 0.9 % (0.0-1.0); EOSINOPHILS # (AUTO) 0.4 (0.0-0.4); LYMPHOCYTES # (AUTO) 2.8 (1.0-3.2); MONOCYTES # (AUTO) 0.4 (0.2-0.8); NEUTROPHILS # (AUTO) 3.1 (2.1-6.9)
--- NOTE | 2018-06-16 21:11 | Diagnostic Imaging Report ---
EXAMINATION: CHEST 2 VIEWS INDICATION: Chest congestion, cough ^SOB ^[id number] ^2054 ^Y COMPARISON: None FINDINGS: PA and lateral views TUBES and LINES: None. LUNGS: Lungs are well inflated. Calcified granuloma in the right upper lobe measures 3 to 4 mm. There is no evidence of pneumonia or pulmonary edema. PLEURA: No pleural effusion or pneumothorax. HEART AND MEDIASTINUM: The heart is normal in size. The aorta is tortuous. BONES AND SOFT TISSUES: No focal osseous lesions. Soft tissues are unremarkable. UPPER ABDOMEN: No free air under the diaphragm. IMPRESSION: No acute thoracic abnormality. Signed by: Dr. Jagdeep Alvarez MD on 06/16/2018 9:07 PM
[2018-06-16 21:29] LABS: BLOOD UREA NITROGEN 10 mg/dL (7-26); BUN/CREATININE RATIO 11 (6-25); CALCIUM 10.1 mg/dL (8.4-10.2); CARBON DIOXIDE 21 mmol/L (22-29); CHLORIDE 105 mmol/L (98-107); CREATININE, SERUM 0.91 mg/dL (0.57-1.11); EST GLOMERULAR FILTRATION RATE > 60 ML/MIN (60-); GLUCOSE 362 mg/dL (74-118); SODIUM 139 mmol/L (136-145)
[2018-06-16 21:30] LABS: ALANINE AMINOTRANSFERASE 111 IU/L (0-55); ALBUMIN 3.7 g/dL (3.5-5.0); ALBUMIN/GLOBULIN RATIO 0.9 (0.8-2.0); ALKALINE PHOSPHATASE 89 IU/L (40-150); CREATINE KINASE 84 IU/L (29-168)
[2018-06-16 23:02] LABS: CLARITY,URINE CLEAR (CLEAR); COLOR,URINE YELLOW (YELLOW); LEUKOCYTE ESTERASE ,URINE 1+ (NEGATIVE)
[2018-06-16 23:03] LABS: BILIRUBIN,URINE NEGATIVE (NEGATIVE); KETONES,URINE NEGATIVE (NEGATIVE); NITRITE,URINE NEGATIVE (NEGATIVE); PROTEIN,URINE DIPSTICK NEGATIVE (NEGATIVE); URINE UROBILINOGEN 0.2 mg/dL (0.2 - 1)
[2018-06-16 23:09] LABS: BACTERIA,URINE FEW /HPF; EPITHELIAL CELLS,URINE MODERATE /LPF
[2018-06-16 23:27] VITALS: BP 147/90
== END 2018-06-16 23:31 | disposition home or self-care (01) ==
LOC: ER 20:07
DX: R05 Cough (principal); J20.9 Acute bronchitis, unspecified; J30.2 Other seasonal allergic rhinitis; J30.1 Allergic rhinitis due to pollen
CPT/HCPCS: 36415; 71046; 80053; 81001; 82550; 82553; 83880; 84484; 85025; 93005; 99284

== ENCOUNTER → 2019-01-09 | Outpatient (CLI) | payer BC | LOC: MAMMO 09:34 | PROVIDERS: ATTEND Internal Medicine | DX: Z12.31 Encounter for screening mammogram for malignant neoplasm of breast (principal) | CPT/HCPCS: 77067 ==

== ENCOUNTER 2019-12-01 11:06 | Emergency (ER) | payer BC ==
[~2019-12-01] VITALS: Ht 160 cm; Wt 84.8 kg
--- NOTE | 2019-12-01 11:30 | Emergency Department Note ---
History of Present Illnes History of Present Illness Chief Complaint: General Medicine Complaints History of Present Illness This is a 68 year old female Pt reports not sleeping last 2 days since running out of Clonazepam 2 mg tab. pt claims she has been to [facility] and [facility] for sleep studies/insomnia workups. pt non complaint with her losartan or medications. pt only wants clonazepam til wednesday. 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 Any updates have been documented here. Past Medical History Recent Fever: No Clinical Suspicion of Infectio: No New/Unexplained Change in Ment: No Past Medical History: Diabetes, Anxiety, Depression, Hyperlipedemia Other Medical History: sleep disorder Past Surgical History: Knee Replacement Other Surgery: RIGHT KNEE REPLACEMENT Social History Smoking Cessation: Never Smoker Counseling Performed: No Alcohol Use: None Any Illegal Drug Use: No TB Exposure/Symptoms: No Physically hurt or threatened: No Family History Family history of heart diseas: No Other Last Tetanus: Unknown Any Pre-Existing Lines (PICC,: No Review of Systems Review of Systems Constitutional: Reports as per HPI, Reports other (insomnia) EENTM: Reports no symptoms Cardiovascular: Reports no symptoms Respiratory: Reports no symptoms Gastrointestinal: Reports no symptoms Genitourinary: Reports no symptoms Musculoskeletal: Reports no symptoms Integumentary: Reports no symptoms Neurological: Reports no symptoms Psychological: Reports no symptoms Endocrine: Reports no symptoms Hematological/Lymphatic: Reports no symptoms Physical Exam Related Data Allergies: Coded Allergies: No Known Allergies (Verified , 09/21/15) Triage Vital Signs Vital Signs Date Time Temp Pulse Resp B/P (MAP) Pulse Ox O2 Delivery O2 Flow Rate FiO2 12/01/19 11:10 98.4 97 16 182/74 100 Room Air Vital signs reviewed: Yes Physical Exam CONSTITUTIONAL Constitutional: Present well-developed, Present well-nourished HENT HENT: Present normocephalic, Present atraumatic, Present oropharynx clear/moist, Present nose normal HENT L/R: Present left ext ear normal, Present right ext ear normal EYES Eyes: Reports PERRL, Reports conjunctivae normal NECK Neck: Present ROM normal PULMONARY Pulmonary: Present effort normal, Present breath sounds normal CARDIOVASCULAR Cardiovascular: Present regular rhythm, Present heart sounds normal, Present capillary refill normal, Present normal rate GASTROINTESTINAL Abdominal: Present soft, Present nontender, Present bowel sounds normal GENITOURINARY Genitourinary: Present exam deferred SKIN Skin: Present warm, Present dry MUSCULOSKELETAL Musculoskeletal: Present ROM normal NEUROLOGICAL Neurological: Present alert, Present oriented x 3, Present no gross motor or sensory deficits PSYCHOLOGICAL Psychological: Present mood/affect normal, Present judgement normal Assessment & Plan Medical Decision Making MDM refill med x 5 days Reassessment Reassessment MA HOME Assessment & Plan Final Impression: (1) Insomnia Depart Disposition: HOME, SELF-CARE Last Vital Signs Date Time Temp Pulse Resp B/P (MAP) Pulse Ox O2 Delivery O2 Flow Rate FiO2 12/01/19 11:10 98.4 97 16 182/74 100 Room Air Home Meds Reported Medications [Vit D] No Conflict Check, 1 TAB PO DAILY 11/26/15 Metformin Hcl (METFORMIN HCL) 500 Mg Tablet, 500 MG PO BID, #60 TAB 11/26/15 Clonazepam (CLONAZEPAM) 1 Mg Tablet, 1 MG PO PRN, TAB 11/25/15 Estrogen,Con/M-Progest Acet (PREMPRO 0.3 MG-1.5 MG TABLET) 1 Each Tablet, 1 TAB PO DAILY 11/25/15 BURCE CABRERA MD Dec 01, 2019 11:30
[2019-12-01 11:41] VITALS: BP 178/82
--- OUTSIDE RECORDS SUMMARY | 2019-12-01 11:42 | XMS REPORT | Continuity of Care Document ---
Author Author Cody [employer] SAUL Arellano [place] Address Unknown Phone Unavailable Care Team Providers Care Buckle Strap Puncher Name Role Phone Listen Edition Information Exchange Unavailable Un available Problems Problem Status Onset Date Classification Date Reported Comments Source Ca cervix - screening done (finding) Resolved 08/27/2016 Problem 09/03/2019 [facility] Osteopenia (disorder) Active 06/15/2014 Problem 09/03/2019 Data migrated from [employer] on . Data migrated from [employer] on 07/31/14. [facility] Disorder of vision (disorder) Active 01/31/2014 Problem 09/03/2019 Data migrated from [employer] on 07/28. [facility] Liver cyst (disorder) Active 01/31/2014 Problem 09/03/2019 Data migrated from [employer] on 07/28. [facility] Steatosis of liver (disorder) Active 01/31/2014 Problem 09/03/2019 Data migrated from [employer] on 07/28. [facility] Obesity (disorder) Active 10/12/2013 Problem 09/03/2019 Data migrated from [employer] on 07/28. [facility] Diverticular disease of colon (disorder) Active 04/13/2013 Problem 09/03/2019 Data migrated from [employer] on 07/28/14. [facility] Diabetes mellitus type 2 (disorder) Resolved 03/21/2013 Problem 09/03/2019 Data migrated from [employer] on 07/28. [facility] Fatigue (finding) Active 03/21/2013 Problem 09/03/2019 Data migrated from [employer] on 07/28. [facility] Hyperlipidemia (disorder) Acti ve 03/21/2013 Problem 09/18/2018 Data migrated from [employer] on 07/28. [facility] Mixed anxiety and depressive disorder (disorder) Active 03/21/2013 Problem 09/18/2018 Data migrated from [employer] on 07/28/14. [facility] Sleep apnea (finding) Active 03/21/2013 Problem 09/03/2019 Data migrated from [employer] on 07/28. 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 Liver enzymes abnormal (finding) Active Problem 06/2019 [facility] Mild major depression (disorder) Active Problem [facility] Mixed hyperlipidemia (disorder) Active Problem 06/2019 [facility] Mycosis (disorder) Active Problem 09/03/2019 [facility] Onychomycosis (disorder) Active Problem 09/03/2019 [facility] Osteoarthritis (disorder) Acti ve Problem 06/2019 [facility] Patient encounter status (finding) Active Problem 06/2019 [facility] Preoperative state (finding) A ctive Problem 06/2019 [facility] Screening status (finding) Act rina Problem 06/2019 [facility] Vaginal irritation (finding) A ctive Problem 06/2019 [facility] Non-alcoholic fatty liver (disorder) Active Problem 06/2019 [facility] Antinuclear antibody above reference range (finding) Active Problem 09/03/2019 [facility] Medications Medication Details Route Status Patient Instructions Ordering Provider Order Date Source glimepiride 4 mg oral tablet = 1 tab, PO, BID, # 180 tab, 0 Refill(s), Pharmacy: [id number], 160.02, cm, 01/19/19 7:38:00 [employer], Height, 84.545, kg, 01/19/19 7:38:00 [employer], Weight No Longer Active 08/31/2019 [facility] glimepiride 4 mg oral tablet 4 mg = 1 tab, PO, BID, # 180 tab, 1 Refill(s), Pharmacy: [facility] [id number] Active 08/24/2018 [facility] amLODIPine 5 mg oral tablet 5 mg = 1 tab, PO, Daily, # 90 tab, 1 Refill(s), Pharmacy: [facility] [id number] Active 05/11/2018 [facility] glimepiride 4 mg oral tablet 4 mg = 1 tab, PO, BID, # 180 tab, 1 Refill(s), Pharmacy: [facility] [id number] Active 05/11/2018 [facility] losartan 100 mg oral tablet 10 0 mg = 1 tab, PO, Daily, # 90 tab, 1 Refill(s), Pharmacy: [facility] [id number] Active 05/11/2018 [facility] Metformin hydrochloride 1000 MG Oral Tablet 1,000 mg = 1 tab, PO, BID, # 180 tab, 3 Refill(s), Pharmacy: [facility] [id number] Active 05/11/2018 [facility] atorvastatin 10 mg oral tablet 10 mg = 1 tab, PO, Bedtime, # 90 tab, 1 Refill(s), Pharmacy: [facility] [id number] Active 05/11/2018 [facility] mirtazapine 30 mg oral tablet 30 mg = 1 tab, PO, Bedtime, # 90 tab, 0 Refill(s), Pharmacy: [facility] [id number] Active 05/11/2018 [facility] glimepiride 4 mg oral tablet 4 mg = 1 tab, PO, BID, # 180 tab, 1 Refill(s), Pharmacy: [facility] [id number] No Longer Active 01/17/2018 [facility] losartan 100 mg oral tablet 10 0 mg = 1 tab, PO, Daily, # 90 tab, 1 Refill(s), [facility] [id number] No Longer Active 01/17/2018 [facility] losartan 50 mg oral tablet 50 mg = 1 tab, PO, Daily, # 90 tab, 1 Refill(s), [facility] [id number] Inactive 01/17/2018 [facility] atorvastatin 10 mg oral tablet 10 mg = 1 tab, PO, Bedtime, # 90 tab, 1 Refill(s), Pharmacy: [facility] [id number] No Longer Active 01/17/2018 [facility] losartan 50 mg oral tablet 50 mg = 1 tab, PO, Daily, # 90 tab, 1 Refill(s), Pharmacy: [facility] [id number] No Longer Active 01/11/2018 [facility] Metformin hydrochloride 1000 MG Oral Tablet 1,000 mg = 1 tab, PO, BID, # 180 tab, 3 Refill(s), Pharmacy: [facility] [id number] Active 08/04/2017 [facility] mirtazapine 30 mg oral tablet 30 mg = 1 tab, PO, Bedtime, # 90 tab, 1 Refill(s), Pharmacy: [facility] [id number] Active 04/22/2017 [facility] Terbinafine hydrochloride 10 MG/ML Topical [place] 1 spray, TOP, BID, X 60 day, # 125 mL, 1 Refill(s), Pharmacy: [facility] [id number] Active 04/22/2017 [facility] mirtazapine 15 mg oral tablet 15 mg = 1 tab, PO, Bedtime, # 90 tab, 1 Refill(s), Pharmacy: [facility] [id number] Inactive 04/22/2017 [facility] Allergies, Adverse Reactions, Alerts Substance Category Reaction Severity Reaction type Status Date Reported Comments Source No Known Medication Allergies Assertion Drug aller gy [facility] Immunizations Immunization Date Given Site Status Last Updated Comments Source pneumococcal 13-valent vaccine<sup>1</sup> 05/11/2018 Left Deltoid completed Vera Result Comment: Patient t olerated well [facility] influenza virus vaccine, inactivated<sup>2</sup> 01/11/2018 Left Deltoid completed Robert Result Comment: Patient waited 15 min with no reaction. [facility] influenza virus vaccine, inactivated 12/09/2016 Right Deltoid completed Pieter Bernardo [facility] pneumococcal 23-valent vaccine 12/04/2015 completed R jim Polk [facility] influenza virus vaccine, inactivated 12/14/2014 Right Deltoid completed Luke [facility] Hx influenza vaccine-unspecified<sup>2</sup> 04/13/2013 completed GE Result Comment: done. Migra richie from OBS ; Data migrated from [facility] on 04/02/2015. [facility] Hx influenza vaccine-unspecified<sup>4</sup> 04/13/2013 completed GE Result Comment: done. Migra richie from OBS ; Data migrated from [employer] on 04/02/2015. [facility] influenza virus vaccine, inactivated<sup>1</sup> 04/13/2013 Right Deltoid completed GE Result Comment: fluzone (>3 yrs.) [bsx331]. Migrated from OBS ; Data migrated from [employer] on 04/02/2015. [facility] influenza virus vaccine, inactivated<sup>3</sup> 04/13/2013 Right Deltoid completed GE Result Comment: fluzone (>3 yrs.) [[id number]]. Migrated from OBS ; Data migrated from [employer] on 04/02/2015. [facility] Results No Data Provided for This Section Pathology Reports No Data Provided for This Section Diagnostic Reports No Data Provided for This Section Consultation Notes No Data Provided for This Section Discharge Summaries No Data Provided for This Section History and Physicals No Data Provided for This Section Vital Signs Vital Sign Value Date Comments Source Systolic (mm Hg) 143 01/19/2019 [facility] Diastolic (mm Hg) 83 01/19/2019 [facility] Heart Rate 85 01/19/2019 [facility] Temperature Oral (F) 98.0 F 01/19/2019 [facility] Height 160.02 cm 01/19/2019 [facility] Weight 84.545 01/19/2019 [facility] BMI Calculated 33.02 01/19/2019 [facility] BMI Calculated 34.61 05/11/2018 [facility] Height 160.02 cm 05/11/2018 [facility] Weight 88.636 05/11/2018 [facility] Respitory Rate 16 05/11/2018 [facility] Heart Rate 73 05/11/2018 [facility] Systolic (mm Hg) 155 05/11/2018 [facility] Diastolic (mm Hg) 90 05/11/2018 [facility] Temperature Oral (F) 97.0 F 05/11/2018 [facility] Height 160.02 cm 02/10/2018 [facility] Weight 86.364 02/10/2018 [facility] BMI Calculated 33.73 02/10/2018 [facility] Systolic (mm Hg) 149 02/10/2018 [facility] Diastolic (mm Hg) 79 02/10/2018 [facility] Heart Rate 77 02/10/2018 [facility] Respitory Rate 15 02/10/2018 [facility] Temperature Oral (F) 97.2 F 02/10/2018 [facility] BMI Calculated 33.19 01/17/2018 [facility] Weight 85 1 03/19/2017 [facility] Respitory Rate 16 01/17/2018 [facility] Temperature Oral (F) 97.0 F 01/17/2018 [facility] Height 160.02 cm 01/17/2018 [facility] Systolic (mm Hg) 151 01/17/2018 [facility] Diastolic (mm Hg) 98 01/17/2018 [facility] Heart Rate 88 01/17/2018 [facility] Height 160.02 cm 01/11/2018 [facility] Weight 84.545 01/11/2018 [facility] BMI Calculated 33.02 01/11/2018 [facility] Heart Rate 83 01/11/2018 [facility] Temperature Oral (F) 97.9 F 01/11/2018 [facility] Respitory Rate 14 01/11/2018 [facility] Systolic (mm Hg) 147 01/11/2018 [facility] Diastolic (mm Hg) 82 01/11/2018 [facility] Weight 80.909 04/22/2017 [facility] [...] ADM Date DC Date Status Source OD [id number] 864.11 - LIVER HEMATOM/C KHALIL SMITH 12/05/2010 12/05/2010 Active [facility] [id number] CRYSTAL STEVENS 10/12/2014 Active [facility] Outpatient [id number] CRYSTAL STEVENS 12/14/2014 Active [facility] Outpatient [id number] TIFFANIE YANCEY 04/03/2015 [facility] [id number] TIFFANIE YANCEY 04/10/2015 Active [facility] Outpatient [id number] CRYSTAL STEVENS 08/07/2015 Active [facility] Outpatient [id number] TIFFANIE YANCEY 08/21/2015 Active [facility] Outpatient [id number] TIFFANIE YANCEY 09/04/2015 Active [facility] Outpatient [id number] TIFFANIE RECAJOCELYN 12/04/2015 Active [facility] Outpatient [id number] TIFFANIE YANCEY 08/27/2016 Active [facility] Outpatient [id number] TIFFANIE RECAVARGINA 09/04/2016 Active [facility] Outpatient [id number] TIFFANIE RECAVARIGNA 09/18/2016 Active [facility] Outpatient [id number] TIFFANIE YANCEY 11/10/2016 Active [facility] Outpatient [id number] TIFFANIE RECAJOCELYN 12/02/2016 Active [facility] Outpatient [id number] TIFFANIE YANCEY 12/09/2016 Active [facility] Outpatient [id number] TIFFANIE YANCEY 04/09/2017 Active [facility]ulatory Pre-Reg [id number] Tiffanie Yancey Polk 04/09/2017 04/09/2017 [facility] Outpatient [id number] TIFFANIE YANCEY 04/22/2017 Active [facility] Outpatient [id number] Tiffanie Yancey Polk 04/0204/23/2017 [facility] Outpatient [id number] TIFFANIE YANCEY 07/21/2017 Active [facility]ulatory Pre-Reg [id number] Tiffanie Yancey [place] 07/21/2017 07/21/2017 [facility] Phone Message [id number] 08/04/2017 08/06/2017 [facility] Outpatient [id number] TIFFANIE YANCEY 08/19/2017 Active [facility]ulatory Pre-Reg [id number] Tiffanie Yancey Polk 08/19/2017 08/19/2017 [facility] Outpatient [id number] TIFFANIE YANCEY 12/16/2017 Active [facility]ulatory Pre-Reg [id number] Tiffanie Yancey Polk 12/16/2017 12/16/2017 [facility] Outpatient [id number] TIFFANIE YANCEY 01/11/2018 Active [facility] Outpatient [id number] Tiffanie Polk 12/3001/12/2018 [facility] Outpatient [id number] TIFFANIE YANCEY 01/17/2018 Active [facility] Outpatient [id number] Tiffanie Polk 12/3001/18/2018 [facility] Outpatient [id number] TIFFANIE YANCEY 02/10/2018 Active [facility] Outpatient [id number] Tiffanie Polk 01/2902/11/2018 [facility] Outpatient [id number] TIFFANIE YANCEY 05/11/2018 Active [facility] Outpatient [id number] Tiffanie Polk 04/2905/12/2018 [facility] Outpatient [id number] TIFFANIE YANCEY 08/12/2018 Active [facility] Phone Message [id number] 08/24/2018 08/26/2018 [facility] Ambulatory Pre-Reg [id number] Tiffanie Yancey Polk 09/16/2018 09/16/2018 [facility] Outpatient [id number] Tiffanie Yancey Polk 01/19/2019 Active [facility] [place] Outpatient [id number] Tiffanie Polk 12/3101/20/2019 [facility] [place] Phone Message [id number] 03/07/2019 03/09/2019 [facility] Outpatient [id number] Tiffanie Yancey Polk 04/21/2019 Active [facility] [place] Phone Message [id number] 08/31/2019 09/02/2019 [facility] Outpatient [id number] Tiffanie Polk 12/12/2019 Active [facility] Procedures Procedure Code Date Perfomer Comments Source Mammogram - screening<sup>1</sup> [id number] 10/30/[address] [facility] Mammogram - screening<sup>2</sup> [id number] 01/10/[address] [facility] Mammogram [id number] 12/11/2014 [facility] Papanicolaou smear taken 20671 8002 12/10/2014 [facility] Examination of foot [id number] 06/15/2014 [facility] Nail operations<sup>1</sup> 24 0192071 04/29/2014 right toe ingrown nail [facility] Nail operations<sup>2</sup> 24 0322655 04/29/[address] toe [address] [facility] Nail operations<sup>3</sup> 24 1896216 04/29/2014 right toe ingrown nail [facility] Eye examination<sup>2</sup> 36 720853 03/01/2014 per patient [facility] Eye examination<sup>3</sup> 36 559246 03/01/2014 per patient [facility] Eye examination<sup>4</sup> 36 161695 03/01/2014 per patient [facility] Bone density scan<sup>3</sup> [id number] 11/29/2013 osteopenia at [facility] [facility] Bone density scan<sup>4</sup> [id number] 11/29/2013 osteopenia at [employer] Bone density scan<sup>5</sup> [id number] 11/29/2013 osteopenia at [employer] [facility] Nasal operation<sup>4</sup> 88 289624 08/29/2013 [facility] Nasal operation<sup>5</sup> 88 019903 08/29/2013 [facility] Nasal operation<sup>6</sup> 88 349968 08/29/2013 [facility] Colonoscopy<sup>5, 6</sup> 737 35139 04/01/2009 Angioectasia, diverticulosis, internal hemorroids @ Dr. Mata 2019 [facility] Colonoscopy<sup>6, 7</sup> 737 99924 04/01/2009 Angioectasia, diverticulosis, internal hemorroids @ Dr. Mata 2019 [facility] Colonoscopy<sup>7, 8</sup> 737 44505 04/01/2009 Angioectasia, diverticulosis, internal hemorroids @ Dr. 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 Exercise 1 Substance Abuse Use: None. Smoking Status Never smoker; Exposure to Tobacco Smoke None; Cigarette Smoking Last 365 Days No; Reg Smoking Cessation Counseling No entered on: 01/19/19 1none 09/04/2015 [facility] Family History No Data Provided for This Section Advance Directives No Data Provided for This Section Functional Status No Data Provided for This Section
--- OUTSIDE RECORDS SUMMARY | 2019-12-01 11:42 | XMS REPORT | Clinical Summary ---
Author Author [facility] Organization [facility] Address Unknown Phone Unavailable Care Team Providers Care Health Unit Supervisor Name Role Phone Tiffanie Whitney MD PCP [phone] Allergies No Known Active Allergies Medications End Date Status Medication Sig Dispensed Refills Start Date Active atorvastatin (LIPITOR) 10 TK 1 TABLET 1 07/ 9/201 MG tablet PO QHS 7 Active VITAMIN D2 50,000 unit TOME CHELI (1) 1 01 capsule CAPSULA(S) 7 POR LA BOCA CHELI VEZ A LA SEMANA POR 12 SEMANAS. Active metFORMIN (GLUCOPHAGE) TK 1 T PO BID 1 01 1,000 mg tablet MEALS 7 Active omega-3 acid ethyl esters TK 1 C PO TID 2 08/0 5201 (LOVAZA) 1 gram capsule 7 Active valsartan (DIOVAN) 320 MG TK 1 T PO QD 0 /0 9/201 tablet 7 Active hydrocortisone 1 % cream APPLY A THIN 0 12/09 LAYER AA BID 7 X 10 DAYS Active nystatin-triamcinolone APPLY 0 01 (MYCOLOG II) 100,000-0.1 TOPICALLY RO 7 unit/g-% cream AFFECTED AREA BID PRN Active Problems Problem Noted Date Total knee replacement status, right 12/08/2016 DM (diabetes mellitus) 11/25/2016 Essential hypertension 11/25/2016 Localized primary osteoarthritis of lower leg 2016 Chronic pain of left knee 10/15/2016 Osteoarthrosis, localized, primary, knee 10/15/2016 Encounters Care Team Description Date Type Specialty Maribel Levine MD 12/01/2019 Telephone Neurology 11/29/2019 Travel after 11/30/2018 Surgical History Surgery Date Site/Laterality Comments SINUS SURGERY 2012 ARTHROPLASTY, KNEE, TOTAL 11/23/2016 Knee/Right Proc edure: TOTAL KNEE ARTHROPLASTY; Surgeon: Angel Yanez MD; Location: [facility] OR; Service: Orthopedics; Laterality: Righ t; Medical devices from this surgery are i n the Implants section. MANIPULATION, JOINT, 02/01/2017 Knee/Right Procedure : CLOSED MANIPULATION RIGHT KNEE ; KNEE, WITH INJECTION Surgeon: Angel Yanez MD; Location: [facility] OR; Service: Orthopedics; Laterali ty: Right; Medical History Medical History Date Comments Diabetes mellitus (HCC) Hyperlipidemia Liver disease fatty liver Sleep apnea Family History Medical History Relation Name Comments Colon cancer Mother Diabetes Mother Relation Name Status Comments Mother Social History Date Tobacco Use Types Packs/Day Years Used Never Smoker Smokeless Tobacco: Never Used Drinks/Week oz/Week Comments Alcohol Use No Sex Assigned at Date Recorded Not on file Date Recorded COVID-19 Exposure Response 11/29/2019 3:40 PM CDT In the last month, have you been in contact with No / Unsure someone who was confirmed or suspected to have Coronavirus / COVID-19? Last Filed Vital Signs Not on file Plan of Treatment Care Team Description Date Type Specialty Maribel Levine MD [address] [facility] [address] [place], [place] [address] 12/04/2019 Office Visit Neurology Health Maintenance Due Date Last Done Comments DIABETIC RETINAL EYE EXAM 1952 DIABETIC FOOT EXAM 1962 URINE MICROALBUMIN 1962 BREAST CANCER SCREENING 2002 COLONOSCOPY SCREENING 2002 SHINGLES VACCINES (#1) 2002 65+ PNEUMOCOCCAL VACCINE 2017 (1 of 1 - PPSV23) INFLUENZA VACCINE 09/30/2019 Implants Device Identifier Shelf Expiration Date Model / Serial / L ot Implanted Type Area Manufactur er 10/24/2025 [id number] / / Screw Bone Headed Mis 48mm - Hip Joint Right: Knee Z [employer] [id number] Implants Implanted: Qty: 1 on 11/23/2016 by Angel Yanez MD at [facility] 03/31/2025 [id number] / / Screw Bone Headed Mis 48mm - Hip Joint Right: Knee Z [employer] [id number] Implants Implanted: Qty: 1 on 11/23/2016 by Angel Yanez MD at [facility] 11/28/2025 [id number] / / Screw Bone Headed Mis 48mm - Hip Joint Right: Knee Z [employer] [id number] Implants Implanted: Qty: 1 on 11/23/2016 by Angel Yanez MD at [facility] 07/29/2020 [id number] 10 / / [id number] Psn Asf Ps 10mm Ve R 6-9 Cd IPM Right: Knee [employer] - [id number] IMPLANT Implanted: Qty: 1 on 11/23/2016 by DEVICES Angel Yanez MD at [facility] 10/29/2026 [id number] 02 / / [id number] Tri Tib Cmt Stm 5 Deg Sz D R, IPM Right: Knee [employer] Persona Knee Joint Implant - IMPLANT [id number] DEVICES Implanted: Qty: 1 on 11/23/2016 by Angel Yanez MD at [facility] 07/29/2021 [id number] / / [id number] All Poly Pat Ve 32 Mm Ly - IPM Right: Knee ZI [employer] [id number] IMPLANT Implanted: Qty: 1 on 11/23/2016 by DEVICES Angel Yanez MD at [facility] 08/28/2025 [id number] / / [id number] Tri Fem Ps Cmt Ccr Cla Sz 6 R, IPM N/A: Knee [employer] Persona Knee Joint Implant - IMPLANT [id number] DEVICES Implanted: Qty: 1 on 11/23/2016 by Angel Yanez MD at [facility] 04/28/2020 [id number] / / [id number] Cement Bone R+G 1dose [place] - Knee Joint Right: Knee [employer] [id number] Implants Implanted: Qty: 1 on 11/23/2016 by Angel Yanez MD at [facility] 04/28/2020 [id number] / / [id number] Cement Bone R+G 1dose [place] - Knee Joint Right: Knee [employer] [id number] Implants Implanted: Qty: 1 on 11/23/2016 by Angel Yanez MD at [facility] 04/14/2018 [id number] / / Matrix Hmstc Floseal 5ml W/ Humn F2 Surgical N/A: N/A MORA - [id number] Implants; BIOSCIENCE Implanted: Qty: 1 on 11/23/2016 by [employer]; Angel Yanez MD at [facility] Extenders; Surgical Wires Results Not on fileafter 11/30/2018 Insurance Type Payer Benefit Subscriber ID Effective Phone Address Plan / Dates Group PPO BCBS BCBS [id number] 2006- CHOICE Present PPO/MAMADOU PRITCHETT PPO [employer] Group [facility] [place] [address] Advance Directives For more information, please contact: [phone] Patient Hvac Specialist Explanation Type Date Recorded Advance Directives, 02/01/2017 6:02 AM Living Will and Medical Power of Motor Hotel Manager Date Inactivated Comments Code Status Date Activated 11/25/2016 6:55 PM Full Code 11/23/2016 1:15 PM Code Status decision reached by: Patient
--- OUTSIDE RECORDS SUMMARY | 2019-12-01 11:43 | XMS REPORT | Continuity of Care Document ---
Author Author [facility] t Organization [facility] Address [address] [place] [address] [address] [place] [address] Phone Unavailable Care Team Providers Care Cash Person Name Role Phone Gallo GUZMAN M.D. PCP Julianna HOFF, Haylie López Attphys [phone] Antionette Rosales Attphys [phone] Gallo GUZMAN Attphys Unavailable Whitley SHAH Attphys Unavailable BEV ROSARIO Attphys Unavailable Payers Payer Name Policy Type Policy Number Effective Date Expiration Date S ource BCBSBCBS CHOICE PPO/FEDERAL EMPL [id number] 2005-Pr esentPPO [id number] 2006 00:00:00 Gerardo Swartz [facility] Ppo [id number] 2006 00:00:00 [facility] Problems Condition Name Condition Details Condition Category Status Onset Date Resolution Date Last Treatment Date Treating Clinician Comments Source DM (diabetes mellitus) DM (diabetes mellitus) Disease Active 2016-11-25 00:00:00 Gerardo tolbert Essential hypertension Essential hypertension Disease Active 2016-11-25 00:00:00 Gerardo tolbert Localized primary osteoarthritis of lower leg Localize d primary osteoarthritis of lower leg Disease Active 2016-11-23 00:00:00 Gerardo Swartz Chronic pain of left knee Chronic pain of left knee Disease Ac tive 2016-10-15 00:00:00 Gerardo tolbert Osteoarthrosis, localized, primary, knee Osteoarthrosi s, localized, primary, knee Disease Active 2016-10-15 00:00:00 [place] Osteopenia (disorder) Oste openia (disorder) Active 06/15/2014 Problem 09/03/2019 Data migrated from [employer] on 09/05/14.Data migrated from [employer] on 07/31/14. Medical Group Problem Active 2014-06-15 00:00:00 2019-09-03 22:47:[address] [facility] [place] Disorder of vision (disorder) Disorder of vision (disorder) Active 01/31/2014 Problem 09/03/2019 Data migrated from [employer] on 07/28/14. Medical Group Problem Active 2014-01-31 00:00:00 2019-09-03 22:47:[address] [facility] [place] Liver cyst (disorder) Live r cyst (disorder) Active 01/31/2014 Problem 09/03/2019 Data migrated from [employer] on 07/28/14. Medical Group Problem Active 2014-01-31 00:00:00 2019-09-03 22:47:[address] [facility] [place] [place] Steatosis of liver (disorder) Steatosis of liver (disorder) Active 01/31/2014 Problem 09/03/2019 Data migrated from [employer] on 07/28/14. Medical Group Problem Active 2014-01-31 00:00:00 2019-09-03 22:47:[address] [facility] [place] [place] Obesity (disorder) Obes ity (disorder) Active 10/12/2013 Problem 09/03/2019 Data migrated from [employer] on 07/28/14. Medical Group Problem Active 2013-10-12 00:00:00 2019-09-03 22:47:[address] [facility] [place] [place] Diverticular disease of colon (disorder) Diverticular disease of colon (disorder) Active 04/13/2013 Problem 09/03/2019 Data migrated from [employer] on 07/28/14. Medical Group Problem Active 2013-04-13 0 0:00:00 2019-09-03 22:47:[address] [facility] [place] [place] Fatigue (finding) Fati cheo (finding) Active 03/21/2013 Problem 09/03/2019 Data migrated from [employer] on 07/28/14. Medical Group Problem Active 2013-03-21 00:00:00 2019-09-03 22:47:[address] [facility] [place] Hyperlipidemia (disorder) Hype rlipidemia (disorder) Active 03/21/2013 Problem 09/18/2018 Data migrated from [employer] on 07/28/14. Medical Group Problem Active 2013-03-21 00:00:00 2018-09-18 21:30:17 Cody Sunshine Mixed anxiety and depressive disorder (disorder) Mixed anxiety and depressive disorder (disorder) Active 03/21/2013 Problem 09/18/2018 Data migrated from [employer] on 07/28/14. Medical Group Problem Ac tive 2013-03-21 00:00:00 2018-09-18 21:30:17 M humberto Sunshine Sleep apnea (finding) Slee p apnea (finding) Active 03/21/2013 Problem 09/03/2019 Data migrated from [employer] on 07/28/14. Medical Group Problem Active 2013-03-21 00:00:00 2019-09-03 22:47:54 Cody Sunshine 864.11 - LIVER HEMATOM/C 864. 11 - LIVER HEMATOM/C Active 12/02/2010 [facility] [place] Diagnosis Active 2010-12-02 00:01:00 2011-02-16 07:55:00 Cody Sunshine Abdominal pain Abdominal pain Problem Active [facility] Biliary colic Biliary colic Problem Active [facility] Acute urinary tract infection (disorder) Acute urinary tract infection (disorder) Active Problem 09/03/2019 Medical Group Problem Active 2019-09-03 22:47:54 Skyler Sunshine Benign essential hypertension (disorder) Benign essential hypertension (disorder) Active Problem 09/03/2019 Medical Group Problem Active 2019-09-03 22:47:54 Cody Sunshine Breast neoplasm screening status (finding) Breast neoplasm screening status (finding) Active Problem 09/03/2019 Medical Group Problem Active 2019-09-03 22:47:54 Cody Sunshine Cobalamin deficiency (disorder) Cobalamin deficiency (disorder) Active Problem 09/03/2019 Medical Group Problem Active 2019-09-03 22:47:54 Cody Sunshine Decreased vitamin D (finding) Decreased vitamin D (finding) Active Problem 09/03/2019 Medical Group Problem Active 2019-09-03 22:47:54 Cody Sunshine 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 (disorder) Diabetic periphe ral neuropathy associated with type II diabetes mellitus (disorder) Active Problem 09/03/2019 Medical Group Problem Active 2019-09-03 22:47:54 Cain inge Jong History of total knee arthroplasty (situation) History of total knee arthroplasty (situation) Active Problem 09/03/2019 Medical Group Problem Active 2019-09-03 22:47:54 Cody Sunshine Liver enzymes abnormal (finding) Liver enzymes abnormal (finding) Active Problem 09/03/2019 Medical Group Problem Active 2019-09-03 22:47:54 Cody Sunshine Mild major depression (disorder) Mild major depression (disorder) Active Problem 09/18/2018 Medical Group Problem Active 2018-09-18 21:30:17 Cody Sunshine Mixed hyperlipidemia (disorder) Mixed hyperlipidemia (disorder) Active Problem 09/03/2019 Medical Group Problem Active 2019-09-03 22:47:54 Cody Sunshine Mycosis (disorder) Myco sis (disorder) Active Problem 09/03/2019 Medical Group Problem Active 2019-09-03 22:47:54 Cody Sunshine Onychomycosis (disorder) Onyc homycosis (disorder) Active Problem 09/03/2019 Medical Group Problem Active 2019-09-03 22: 47:54 Cody Sunshine Osteoarthritis (disorder) Oste oarthritis (disorder) Active Problem 09/03/2019 Medical Group Problem Active 2019-09-03 22:47:54 Cody Sunshine Patient encounter status (finding) Patient encounter status (finding) Active Problem 09/03/2019 Medical Group Problem Active 2019-09-03 22:47:54 Cody Sunshine Preoperative state (finding) P reoperative state (finding) Active Problem 09/03/2019 Medical Group Problem Active 2019-09-03 22:47:54 Cody Sunshine Screening status (finding) Scr eening status (finding) Active Problem 09/03/2019 Medical Group Problem Active 2019-09-03 22:47:54 Cody Sunshine Vaginal irritation (finding) V aginal irritation (finding) Active Problem 09/03/2019 Medical Group Problem Active 2019-09-03 22:47:54 Cody Sunshine Non-alcoholic fatty liver (disorder) Non-alcoholic fatty liver (disorder) Active Problem 09/03/2019 Medical Group Problem Active 2019-09-03 22:47:54 Cody Sunshine Antinuclear antibody above reference range (finding) Antinuclear antibody above reference range (finding) Active Problem 09/03/2019 Medical Group Problem Active 2019-09-03 22:47:54 Cody Sunshine History of Past Illness Condition Name Condition Details Condition Category Status Onset Date Resolution Date Last Treatment Date Treating Clinician Comments Source Ca cervix - screening done (finding) Ca cervix - screening done (finding) Resolved 08/27/2016 Problem 09/03/2019 Medical Group Problem Resolved 2016-08-27 00:00:00 2019-09-03 22:47:54 2019-09-03 22:47:5 4 Cody Sunshine Diabetes mellitus type 2 (disorder) Diabetes mellitus type 2 (disorder) Resolved 03/21/2013 Problem 09/03/2019 Data migrated from [employer] on 07/28/14. Medical Group Problem Resolved 03-21 00:00:00 2019-09-03 22:47:54 2019-09-03 22:47:54 Cody Sunshine Allergies, Adverse Reactions, Alerts Allergy Name Allergy Type Status Severity Reaction(s) Onset Date Inacti ve Date Treating Clinician Comments Source No Known Medication Allergies No Known Medication Allergies Active Cody Sunshine Family History Family Member Diagnosis Comments Start Date Stop Date Source Natural mother Colon cancer Gerardo Swartz Natural mother Diabetes [facility] Social History Social Habit Start Date Stop Date Quantity Comments Source Sex Assigned At Elaine ariel Swartz Exposure to SARS-CoV-2 (event) Not sure Gerardo Swartz Tobacco use and exposure 2017-09-07 00:00:00 2017-09-07 00:00:00 Cassie lebron used Gerardo Swartz Alcohol intake 2017-09-07 00:00:00 2017-09-07 00:00:00 Current non-drinker of alcohol (finding) Gerardo Swartz Social History 2015-09-04 18:43:45 2015-09-04 18:43:45 Cody Sunshine Smoking Status Start Date Stop Date Source Never smoker Gerardo Ayoub t Medications Ordered Medication Name Filled Medication Name Start Date Stop Da te Current Medication? Ordering Clinician Indication Dosage Frequency Signature (SIG) Comments Components Source glimepiride 4 mg oral tablet 2019-08-31 16:20:00 No = 1 tab, PO, BID, # 180 tab, 0 Refill(s), Pharmacy: [facility] #[id number], 160.02, cm, 01/19/19 7:38:00 OB SCRUB TECH, Height, 84.545, kg, 11/21/19 7:38:00 OB SCRUB TECH, Weight [facility] [place] glimepiride 4 mg oral tablet 2018-08-24 20:56:51 Yes 4 mg = 1 tab, PO, BID, # 180 tab, 1 Refill(s), Pharmacy: [address] amLODIPine 5 mg oral tablet 2018-05-11 13:30:00 Yes 5 mg = 1 tab, PO, Daily, # 90 tab, 1 Refill(s), Pharmacy: [address] glimepiride 4 mg oral tablet 2018-05-11 13:26:59 Yes 4 mg = 1 tab, PO, BID, # 180 tab, 1 Refill(s), Pharmacy: [address] losartan 100 mg oral tablet 2018-05-11 13:26:56 Yes 100 mg = 1 tab, PO, Daily, # 90 tab, 1 Refill(s), Pharmacy: [address] Metformin hydrochloride 1000 MG Oral Tablet 2018-05-11 13:26:54 Yes 1,000 mg = 1 tab, PO, BID, # 180 tab, 3 Refill(s), Pharmacy: [address] atorvastatin 10 mg oral tablet 2018-05-11 13:26:50 Yes 10 mg = 1 tab, PO, Bedtime, # 90 tab, 1 Refill(s), Pharmacy: [address] mirtazapine 30 mg oral tablet 2018-05-11 13:26:00 Yes 30 mg = 1 tab, PO, Bedtime, # 90 tab, 0 Refill(s), Pharmacy: [address] glimepiride 4 mg oral tablet 2018-01-17 21:38:00 No 4 mg = 1 tab, PO, BID, # 180 tab, 1 Refill(s), Pharmacy: [address] losartan 100 mg oral tablet 2018-01-17 21:34:00 No 100 mg = 1 tab, PO, Daily, # 90 tab, 1 Refill(s), Pharmacy: [address] losartan 50 mg oral tablet 2018-01-17 21:28:31 No 50 mg = 1 tab, PO, Daily, # 90 tab, 1 Refill(s), Pharmacy: [address] atorvastatin 10 mg oral tablet 2018-01-17 21:28:27 No 10 mg = 1 tab, PO, Bedtime, # 90 tab, 1 Refill(s), Pharmacy: [address] losartan 50 mg oral tablet 2018-01-11 14:07:00 No 50 mg = 1 tab, PO, Daily, # 90 tab, 1 Refill(s), Pharmacy: [address] Metformin hydrochloride 1000 MG Oral Tablet 2017-08-04 17:43:39 Yes 1,000 mg = 1 tab, PO, BID, # 180 tab, 3 Refill(s), Pharmacy: [address] mirtazapine 30 mg oral tablet 2017-04-22 14:57:00 Yes 30 mg = 1 tab, PO, Bedtime, # 90 tab, 1 Refill(s), Pharmacy: [address] Terbinafine hydrochloride 10 MG/ML Topical [place] 2017-04-22 14:56:00 Yes 1 spray, TOP, BID, X 60 day, # 125 mL, 1 Refill(s), Pharmacy: [address] mirtazapine 15 mg oral tablet 2017-04-22 14:47:00 No 15 mg = 1 tab, PO, Bedtime, # 90 tab, 1 Refill(s), Pharmacy: [address] nystatin-triamcinolone (MYCOLOG II) 100,000-0.1 unit/g-% cre am 2017-01-01 00:00:00 Yes APPLY TOPICALLY RO AFFECTED A ELIZA BID PRN Gerardo Swartz hydrocortisone 1 % cream 2016-12-09 00:00:00 Yes APPLY A THIN LAYER AA BID X 10 DAYS Gerardo Swartz omega-3 acid ethyl esters (LOVAZA) 1 gram capsule 2016-10-03 00:00:00 Yes TK 1 C PO TID Gerardo sutton metFORMIN (GLUCOPHAGE) 1,000 mg tablet 2016-09-20 00:00:00 Yes TK 1 T PO BID MEALS Gerardo Swartz atorvastatin (LIPITOR) 10 MG tablet 2016-09-06 00:00:00 Yes TK 1 TABLET PO QHS Gerardo Swartz valsartan (DIOVAN) 320 MG tablet 2016-09-06 00:00:00 Yes TK 1 T PO QD Gerardo Swartz VITAMIN D2 50,000 unit capsule 2016-09-04 00:00:00 Yes TOME CHELI (1) CAPSULA(S) POR LA BOCA CHELI VEZ A LA SEMANA POR 12 SEMANAS. Gerardo Swartz Clonazepam 1 Mg Tablet Clonazepam 1 Mg Tablet Yes 1 As Needed [facility] Estrogen,Con/M-Progest Acet (Prempro 0.3 Mg-1.5 Mg Tab let) 1 Each Tablet Estrogen,Con/M-Progest Acet (Prempro 0.3 Mg-1.5 Mg Tablet) 1 Each Tablet Yes 1 Daily [facility] Metformin Hcl 500 Mg Tablet Metformin Hcl 500 Mg Tablet Yes 500 Twice A Day [facility] Vit D Vit D Yes 1 Daily [facility] Vital Signs Vital Name Observation Time Observation Value Comments Source Systolic (mm Hg) 2019-01-19 13:38:00 Cain rial Jong Diastolic (mm Hg) 2019-01-19 13:38:00 Mem o[facility] Heart Rate 2019-01-19 13:38:00 [facility] Temperature Oral (F) 2019-01-19 13:38:00 98.0 F [facility] Height 2019-01-19 13:38:00 160.02 cm [facility] [place] Weight 2019-01-19 13:38:00 [facility] BMI Calculated 2019-01-19 13:38:00 [facility] BMI Calculated 2018-05-11 12:46:00 [facility] Height 2018-05-11 12:46:00 160.02 cm [facility] Weight 2018-05-11 12:46:00 [facility] Respitory Rate 2018-05-11 12:46:00 [facility] Heart Rate 2018-05-11 12:46:00 [facility] Systolic (mm Hg) 2018-05-11 12:46:00 Cain rial [place] Diastolic (mm Hg) 2018-05-11 12:46:00 Mem [facility] Temperature Oral (F) 2018-05-11 12:46:00 97.0 F [facility] Height 2018-02-10 16:27:00 160.02 cm [facility] Weight 2018-02-10 16:27:00 [facility] BMI Calculated 2018-02-10 16:27:00 [facility] Systolic (mm Hg) 2018-02-10 16:27:00 Cain rial [place] Diastolic (mm Hg) 2018-02-10 16:27:00 Mem [facility] Heart Rate 2018-02-10 16:27:00 [facility] Respitory Rate 2018-02-10 16:27:00 [facility] [place] Temperature Oral (F) 2018-02-10 16:27:00 97.2 F [facility] BMI Calculated 2018-01-17 20:59:00 [facility] Weight 2018-01-17 20:59:00 [facility] Respitory Rate 2018-01-17 20:59:00 [facility] Temperature Oral (F) 2018-01-17 20:59:00 97.0 F [facility] Height 2018-01-17 20:59:00 160.02 cm [facility] Systolic (mm Hg) 2018-01-17 20:59:00 Cain rial [place] Diastolic (mm Hg) 2018-01-17 20:59:00 Mem [facility] Heart Rate 2018-01-17 20:59:00 [facility] Height 2018-01-11 13:56:00 160.02 cm [facility] Weight 2018-01-11 13:56:00 [facility] BMI Calculated 2018-01-11 13:56:00 [facility] Heart Rate 2018-01-11 13:56:00 [facility] Temperature Oral (F) 2018-01-11 13:56:00 97.9 F [facility] Respitory Rate 2018-01-11 13:56:00 [facility] Systolic (mm Hg) 2018-01-11 13:56:00 Cain rial [place] Diastolic (mm Hg) 2018-01-11 13:56:00 [facility] Weight 2017-04-22 14:04:00 [facility] BMI Calculated 2017-04-22 14:04:00 [facility] Height 2017-04-22 14:04:00 160.02 cm [facility] Systolic (mm Hg) 2017-04-22 14:04:00 Cain riawhitley [place] Diastolic (mm Hg) 2017-04-22 14:04:00 [facility] orial [place] Temperature Oral (F) 2017-04-22 14:04:00 97.9 F [facility] Respitory Rate 2017-04-22 14:04:00 Jaimeori al Jong Heart Rate 2017-04-22 14:04:00 [facility] Procedures Procedure Date / Time Performed Performing Clinician [facility] e Mammogram - screening<sup>1</sup> 2018-10-30 05:00:[address] [facility] [place] X-ray of chest, two views 2018-06-16 00:00:00 GEOVANNA SHAH [facility] Computed tomography of abdomen with contrast 2018-01-28 00:0 0:00 TIFFANIE GUZMAN [facility] Mammogram - screening<sup>2</sup> 2018-01-10 06:00:[address] [facility] [place] Mammogram 2014-12-11 05:00:00 [facility] Papanicolaou smear taken 2014-12-10 05:00:00 [facility]rial [place] Examination of foot 2014-06-15 05:00:00 [facility] Nail operations<sup>3</sup> 2014-04-29 00:00:[address] [facility] [place] Eye examination<sup>4</sup> 2014-03-01 00:00:00 [facility] Bone density scan<sup>5</sup> 2013-11-29 00:00:[address] [facility] [place] Nasal operation<sup>6</sup> 2013-08-29 00:00:[address] [facility] [place] Colonoscopy<sup>7, 8</sup> 2009-04-01 00:00:00 [facility] Plan of Care Planned Activity Planned Date Details Comments Source Future Scheduled Test 2019-09-30 00:00:00 INFLUENZA VACCINE [code = INFLUENZA VACCINE] [facility] Scheduled Test 2017 00:00:00 65+ PNEUMOCOCCAL V ACCINE (1 of 1 - PPSV23) [code = 65+ PNEUMOCOCCAL VACCINE (1 of 1 - PPSV23)] [facility] Future Scheduled Test 2002 00:00:00 BREAST CANCER SCRE ENING [code = BREAST CANCER SCREENING] [facility] Scheduled Test 2002 00:00:00 COLONOSCOPY SCREEN ING [code = COLONOSCOPY SCREENING] [facility] Scheduled Test 2002 00:00:00 SHINGLES VACCINES (#1) [code = SHINGLES VACCINES (#1)] [facility] Scheduled Test 1962 00:00:00 DIABETIC FOOT EXAM [code = DIABETIC FOOT EXAM] [facility] Scheduled Test 1962 00:00:00 URINE MICROALBUMIN [code = URINE MICROALBUMIN] [facility] Scheduled Test 1952 00:00:00 DIABETIC RETINAL E YE EXAM [code = DIABETIC RETINAL EYE EXAM] [facility] Encounters Start Date/Time End Date/Time Encounter Type Admission Type [facility] Care Department Encounter ID Source 2019-08-31 11:10:58 2019-09-01 23:59:59 Outpatient [facility] [id number] 2019-03-07 15:16:55 2019-03-08 23:59:59 Outpatient [facility] [id number] 2019-01-19 07:00:00 2019-01-19 23:59:59 Outpatient Tiffanie Ladd [facility] [id number] 2018-09-16 11:30:00 2018-09-16 11:30:00 Outpatient Tiffanie Ladd [facility] [id number] 2018-08-24 09:27:08 2018-08-25 23:59:59 Outpatient [facility] [id number] 2018-06-16 20:07:00 2018-06-16 23:31:00 Departed Emergency Room 1 STELLA SHAH [facility] [id number] [facility] 2018-05-11 08:30:00 2018-05-11 23:59:59 Outpatient Tiffanie Ladd [facility] [id number] 2018-02-10 11:00:00 2018-02-10 23:59:59 Outpatient Tiffanie Ladd [facility] [id number] 2018-01-28 16:41:00 2018-01-28 16:41:00 Registered Clinic 3 TIFFANIE GUZMAN [facility] [id number] [facility] 2018-01-17 15:30:00 2018-01-17 23:59:59 Outpatient R ramseysaeid NewmanTiffanie melara [facility] [id number] 2018-01-11 07:45:00 2018-01-11 23:59:59 Outpatient R Tiffanie Messer [facility] [id number] 2018-01-10 13:48:00 2018-01-10 13:48:00 Registered Clinic 3 TIFFANIE GUZMAN [facility] [id number] [facility] 2017-12-16 09:30:00 2017-12-16 09:30:00 Outpatient R Tiffanie Messer [facility] [id number] 2017-08-19 13:00:00 2017-08-19 13:00:00 Outpatient R Tiffanie Messer [facility] [id number] 2017-08-04 11:25:00 2017-08-05 23:59:59 Outpatient [facility] [id number] 2017-07-21 13:00:00 2017-07-21 13:00:00 Outpatient R Tiffanie Messer [facility] [id number] 2017-04-22 08:15:00 2017-04-22 23:59:59 Outpatient R Tiffanie Messer [facility] [id number] 2017-04-09 11:00:00 2017-04-09 11:00:00 Outpatient R Tiffanie Messer [facility] [id number] 2017-04-09 11:00:00 2017-04-09 11:00:00 Outpatient R Tiffanie Messer [facility] [id number] Results Test Description Test Time Test Comments Results Result Comments Source MAMMOGRAPHY DIGITAL SCR BILAT 2019-01-09 11:04:00 [place] [address] Patient Name: SAUL TELLEZ MR #: [id number] : 1950 Age/Sex: 68/F Req #: [id number] Adm Physician: Ordered by: TIFFANIE GUZMAN M.D. Report #: [id number] Location: MAMMO Room/Bed: Procedure: [id number] MG/MAMMOGRAPHY DIGITAL SCR BILAT Exam Date: 01/09/19 Exam Time: 0940 REPORT STATUS: Signed #[id number] - MGSCRBIL #BILATERAL DIGITAL SCREENING MAMMOGRAM WITH CAD: 01/09/2019 CLINICAL: Routine screening. Comparison is made to exams dated: 01/10/2018 mammogram and 01/05/2017 mammogram - [facility]. The tissue of both breasts is predominantly fatty. Current study was also evaluated with a Computer Aided Detection (CAD) system. There are benign lymph nodes in both breasts. There also is a benign calcification in the left breast. No significant masses, calcifications, or other findings are seen in either breast. There has been no significant interval change. IMP RESSION: BENIGN There is no mammographic evidence of malignancy. A 1 year screening mammogram is recommended. The patient will be notified by letter of the results. MAKAYLA pan/gil:01/13/2019 10:53:18 Inspector Tester Sorter: Kalani LYLES(Gallo)(M), [facility] letter sent: Compared to Prior B9 Mammogram BI-RADS: 2 Benign Dictated By: MAKAYLA GROSSMAN MD 1053 Transcribed By: GIL on 01/13/19 1053 COPY TO: TIFFANIE GUZMAN M.D. Urine WBC 2018-06-16 23:09:00 Test Item Urine WBC (test code = 5821-4) 11-20 0-5 [facility] [id number] 23:09:00* Test Item Value Reference Range Interpretation Comments Urine RBC (test code = 51124-2) 6-10 0-5 H [facility] [id number] 23:09:00* Test Item Value Reference Range Interpretation Comments Urine Bacteria (test code = 22338-8) FEW NONE [facility] Epithelial [id number] 23:09:00 * Test Item Value Reference Range Interpretation Comments Urine Epithelial Cells (test code = 47967-8) MODERATE NONE [facility] [id number] 23:03:00* Test Item Value Reference Range Interpretation Comments Urine Color (test code = 5778-6) YELLOW YELLOW [facility] [id number] 23:03:00* Test Item Value Reference Range Interpretation Comments Urine Clarity (test code = 85241-8) CLEAR CLEAR [facility] Specific [id number] 23:03:00 * Test Item Value Reference Range Interpretation Comments Urine Specific [place] (test code = 5811-5) 1.005 1.010-1.02 5 L [facility] [id number] 23:03:00* Test Item Value Reference Range Interpretation Comments Urine pH (test code = 14733-0) 6.5 5-7 [facility] Leukocyte [id number] 23:03:00* Test Item Value Reference Range Interpretation Comments Urine Leukocyte Esterase (test code = 5799-2) 1+ NEGATIVE H [facility] [id number] 23:03:00* Test Item Value Reference Range Interpretation Comments Urine Nitrite (test code = 37060-8) NEGATIVE NEGATIVE [facility] [id number] 23:03:00* Test Item Value Reference Range Interpretation Comments Urine Protein (test code = 5804-0) NEGATIVE NEGATIVE [facility] Glucose (UA)2018-06-16 23:03:00* Test Item Value Reference Range Interpretation Comments Urine Glucose (UA) (test code = 2349-9) 3+ NEGATIVE H [facility] [id number] 23:03:00* Test Item Value Reference Range Interpretation Comments Urine Ketones (test code = 01520-4) NEGATIVE NEGATIVE [facility] Dxbdoqkwxobu4364-55-20 23:03:00* Test Item Value Reference Range Interpretation Comments Urine Urobilinogen (test code = 01279-2) 0.2 0.2-1 [facility]rine Gkthhdbpj6019-55-30 23:03:00* Test Item Value Reference Range Interpretation Comments Urine Bilirubin (test code = 1978-6) NEGATIVE NEGATIVE [facility]ennialUrine Hwllr6512-48-44 23:03:00* Test Item Value Reference Range Interpretation Comments Urine Blood (test code = 04177-1) NEGATIVE NEGATIVE [facility] CentennialB-Type Natriuretic Eygakyx6068-73-18 21:33:00* Test Item Value Reference Range Interpretation Comments B-Type Natriuretic Peptide (test code = 16207-6) 16.2 0-100 [facility] Mlzwl2413-71-67 21:30:00* Test Item Value Reference Range Interpretation Comments Sodium Level (test code = 2951-2) 139 136-145 [facility]ennialPotassium Mqpyw7365-05-79 21:30:00* Test Item Value Reference Range Interpretation Comments Potassium Level (test code = 2823-3) 4.0 3.5-5.1 [facility]ennialChloride Ygkor9309-07-31 21:30:00* Test Item Value Reference Range Interpretation Comments Chloride Level (test code = 2075-0) 105 98-107 [facility] CentennialCarbon Dioxide Zqzpp9694-45-66 21:30:00* Test Item Value Reference Range Interpretation Comments Carbon Dioxide Level (test code = 2028-9) 21 22-29 L [facility] CentennialAnion Gng7823-11-54 21:30:00* Test Item Value Reference Range Interpretation Comments Anion Gap (test code = 11622-5) 17.0 8-16 H [facility] CentennialBlood Urea Dtdraslp4002-69-90 21:30:00* Test Item Value Reference Range Interpretation Comments Blood Urea Nitrogen (test code = 3094-0) 10 7-26 [facility] CentennialCreatinine2019-04-18 21:30:00* Test Item Value Reference Range Interpretation Comments Creatinine (test code = 2160-0) 0.91 0.57-1.11 [facility]ennialBUN/Creatinine Nzviu5647-47-82 21:30:00* Test Item Value Reference Range Interpretation Comments BUN/Creatinine Ratio (test code = 3097-3) 11 08-23 [facility] CentennialEstimat Glomerular Filtration Rate 2018-06-16 21:30:00* Test Item Value Reference Range Interpretation Comments Estimat Glomerular Filtration Rate (test code = 389008724) > 60 >60 Ranges were taken from the National Kidney Disease Education Program and the [facility] literature.Reference ranges:60 or greater: Rqhaul46-50 ( for 3 consecutive months): Chronic kidney disease 15 or less: Kidney failureBaylor Scott & [facility] – CentennialGlucose Onjmn0423-08-79 21:30:00* Test Item Value Reference Range Interpretation Comments Glucose Level (test code = UAM3320) 362 74-118 H [facility] CentennialCalcium Ymzsh8274-52-33 21:30:00* Test Item Value Reference Range Interpretation Comments Calcium Level (test code = 82664-5) 10.1 8.4-10.2 [facility] CentennialTotal Wwfchpmni1040-43-33 21:30:00* Test Item Value Reference Range Interpretation Comments Total Bilirubin (test code = 1975-2) 0.5 0.2-1.2 [facility] CentennialAspartate Amino Transf (AST/SGOT) 2018-06-16 21:30:00* Test Item Value Reference Range Interpretation Comments Aspartate Amino Transf (AST/SGOT) (test code = Aspartate Amino Transf (AST/SGOT)) 54 5-34 H [facility] CentennialAlanine Aminotransferase (ALT/SGPT) 2018-06-16 21:30:00* Test Item Value Reference Range Interpretation Comments Alanine Aminotransferase (ALT/SGPT) (test code = 1742-6) 111 0-55 H [facility] CentennialTotal Itmkfma7769-72-19 21:30:00* Test Item Value Reference Range Interpretation Comments Total Protein (test code = 2885-2) 7.6 6.5-8.1 [facility] CentennialAlbumin2019-04-18 21:30:00* Test Item Value Reference Range Interpretation Comments Albumin (test code = 1751-7) 3.7 3.5-5.0 [facility] CentennialGlobulin2019-04-18 21:30:00* Test Item Value Reference Range Interpretation Comments Globulin (test code = 22989-1) 3.9 2.3-3.5 H [facility] CentennialAlbumin/Globulin Hjihj8384-38-30 21:30:00 * Test Item Value Reference Range Interpretation Comments Albumin/Globulin Ratio (test code = 1759-0) 0.9 0.8-2.0 [facility] CentennialAlkaline Aqrdekllbra3672-41-45 21:30:00* Test Item Value Reference Range Interpretation Comments Alkaline Phosphatase (test code = 6768-6) 89 40-150 [facility] CentennialCreatine Mlgkei8979-19-50 21:30:00* Test Item Value Reference Range Interpretation Comments Creatine Kinase (test code = 2157-6) 84 29-168 [facility] CentennialCreatine Kinase TW1173-39-80 21:30:00* Test Item Value Reference Range Interpretation Comments Creatine Kinase MB (test code = 15663-1) 0.60 0-5.0 [facility] CentennialTroponin P3716-99-25 21:30:00* Test Item Value Reference Range Interpretation Comments Troponin I (test code = NGB0067) < 0.001 0-0.300 [facility] CentennialWhite Blood Gqgng1104-59-50 21:10:00* Test Item Value Reference Range Interpretation Comments White Blood Count (test code = 6690-2) 6.8 4.8-10.8 [facility] CentennialRed Blood Ykxfo2454-26-06 21:10:00* Test Item Value Reference Range Interpretation Comments Red Blood Count (test code = 789-8) 4.49 3.6-5.1 [facility] CentennialHemoglobin2019-04-18 21:10:00* Test Item Value Reference Range Interpretation Comments Hemoglobin (test code = 64657-4) 14.1 12.0-16.0 [facility]ennialHematocrit2019-04-18 21:10:00* Test Item Value Reference Range Interpretation Comments Hematocrit (test code = 4544-3) 41.5 34.2-44.1 [facility] CentennialMean Corpuscular Asxtkw6430-25-45 21:10:00* Test Item Value Reference Range Interpretation Comments Mean Corpuscular Volume (test code = 787-2) 92.4 81-99 [facility] CentennialMean Corpuscular Kyobqfhges3309-83-27 21:10:00* Test Item Value Reference Range Interpretation Comments Mean Corpuscular Hemoglobin (test code = 785-6) 31.4 28-32 [facility] CentennialMean Corpuscular Hemoglobin Concent 2018-06-16 21:10:00* Test Item Value Reference Range Interpretation Comments Mean Corpuscular Hemoglobin Concent (test code = 786-4) 34.0 31-35 [facility] CentennialRed Cell Distribution Dlomi9715-68-44 21:10:00* Test Item Value Reference Range Interpretation Comments Red Cell Distribution Width (test code = 48383-6) 12.1 11.7 -14.4 [facility] CentennialPlatelet Mciem2544-66-51 21:10:00* Test Item Value Reference Range Interpretation Comments Platelet Count (test code = 777-3) 208 140-360 [facility] CentennialNeutrophils (%) (Auto)2018-06-16 21:10:00 * Test Item Value Reference Range Interpretation Comments Neutrophils (%) (Auto) (test code = 82593-4) 45.8 38.7-80.0 [facility] CentennialLymphocytes (%) (Auto)2018-06-16 21:10:00 * Test Item Value Reference Range Interpretation Comments Lymphocytes (%) (Auto) (test code = 736-9) 41.6 18.0-39.1 H [facility] CentennialMonocytes (%) (Auto)2018-06-16 21:10:00* Test Item Value Reference Range Interpretation Comments Monocytes (%) (Auto) (test code = 5905-5) 5.1 4.4-11.3 [facility]ennialEosinophils (%) (Auto)2018-06-16 21:10:00 * Test Item Value Reference Range Interpretation Comments Eosinophils (%) (Auto) (test code = 713-8) 6.5 0.0-6.0 H [facility] CentennialBasophils (%) (Auto)2018-06-16 21:10:00* Test Item Value Reference Range Interpretation Comments Basophils (%) (Auto) (test code = 706-2) 0.9 0.0-1.0 [facility] CentennialIM GRANULOCYTES %2018-06-16 21:10:00* Test Item Value Reference Range Interpretation Comments IM GRANULOCYTES % (test code = IM GRANULOCYTES %) 0.1 0.0- 1.0 [facility] CentennialNeutrophils # (Auto)2018-06-16 21:10:00* Test Item Value Reference Range Interpretation Comments Neutrophils # (Auto) (test code = 751-8) 3.1 2.1-6.9 [facility] CentennialLymphocytes # (Auto)2018-06-16 21:10:00* Test Item Value Reference Range Interpretation Comments Lymphocytes # (Auto) (test code = 88587-5) 2.8 1.0-3.2 [facility] CentennialMonocytes # (Auto)2018-06-16 21:10:00* Test Item Value Reference Range Interpretation Comments Monocytes # (Auto) (test code = 742-7) 0.4 0.2-0.8 [facility]ennialEosinophils # (Auto)2018-06-16 21:10:00* Test Item Value Reference Range Interpretation Comments Eosinophils # (Auto) (test code = 711-2) 0.4 0.0-0.4 [facility] CentennialBasophils # (Auto)2018-06-16 21:10:00* Test Item Value Reference Range Interpretation Comments Basophils # (Auto) (test code = 704-7) 0.1 0.0-0.1 [facility] CentennialAbsolute Immature Granulocyte (auto 2018-06-16 21:10:00* Test Item Value Reference Range Interpretation Comments Absolute Immature Granulocyte (auto (pancho t code = Absolute Immature Granulocyte (auto) 0.01 0-0.1 [facility] CentennialCHEST 2 CPDBK4247-91-89 21:05:00 [facility] [address] [place] [address] Patient Name: SAUL TELLEZ MR #: [id number] : 1950 Age/Sex: 67/F Req #: [id number] Adm Physician: Ordered by: STELLA SHAH MD Report #: [id number] Location: ER Room/Bed: Procedure: 0418- 0068 DX/CHEST 2 VIEWS Exam Date: 06/16/18 Exam Time: 2054 REPORT STATUS: Signed EXAM INATION: CHEST 2 VIEWS INDICATION: Chest congestion, cough SOB [id number] Y COMPARISON: None FINDINGS: PA and lateral views TUBES and LINES: None. LUNGS: Lungs are well inflated. Calcif ied granuloma in the right upper lobe measures 3 to 4 mm. There is no evidence of pneumonia or pulmonary edema. PLEURA: No pleural effusion or pneumotho rax. HEART AND MEDIASTINUM: The heart is normal in size. The aorta is tort uous. BONES AND SOFT TISSUES: No focal osseous lesions. Soft tissues a re unremarkable. UPPER ABDOMEN: No free air under the diaphragm. IM PRESSION: No acute thoracic abnormality. Signed by: Dr. Jagdeep jack MD on 06/16/2018 9:07 PM Dictated By: JAGDEEP MTZ MD Electron ically Signed By: JAGDEEP MTZ MD on 06/16/182106 Transcribed By: FUNMILAYO on 06/16/182106 COPY TO: STELLA SHAH MD CT ABDOMEN W 2018-01-28 23:35:00 [place] [address] Patient Name: SAUL TELLEZ MR #: [id number] : 1950 Age/Sex: 67/F Req #: [id number] Adm Physician: Ordered by: TIFFANIE GUZMAN M.D. Report #: [id number] Location: CT Room/Bed: Procedure: 1 130-0040 CT/CT ABDOMEN W Exam Date: 01/28/18 Exam Ti me: 1850 REPORT STATUS: Signed E XAM: CT ABDOMEN W DATE: 01/28/2018 5:04 PM Time stamp on Exam: 1901 hours INDICATION: Elevated LFTs, right upper quadrant pain COMPARISON: CT of the abdomen and pelvis September 21, 2015 TECHNIQUE: The abdomen was scanned using a multidetector helical scanner. Coronal and sagittal reformations were obtained . Dose modulation, iterative reconstruction, and/or weight based adjustment of the mA/kV was utilized to reduce the radiation dose to as low as reasonably a chievable. Routine protocol performed. IV Contrast: 100 cc Isovue-370 Oral Contrast: Water CTDIvol has been reviewed. It is below the limits set by the Radiation Protocol Committee (RPC). FINDINGS: LOWER THORAX: Stable hypo densities in the medial segment of the lobe left lobe of the liver measuring 6 mm and 9 mm. Stable hypodensities in the posterior inferior right lobe of the liver measuring 6 mm and 1.2 cm. LIVER: No masses BILIARY: The gallbladd er is unremarkable. No ductal dilation. SPLEEN: No masses PANCREAS: No m asses ADRENALS: Stable very mild thickening of the left adrenal gland. KI DNEYS: Symmetrically perfused. No hydronephrosis. No enhancing masses. GI T RACT: No distention, wall thickening or evidence of obstruction in the partial ly visualized bowel. VESSELS: Unremarkable PERITONEUM/RETROPERITONEUM : No free air or fluid LYMPH NODES: No lymphadenopathy SOFT TISSUES: Unre markable BONES: No suspicious bone lesions. IMPRESSION: No interval kendall nge in appearance of the abdomen since prior CT in 2015. Signed by: Dr. Trae Raymundo M.D. on 01/28/2018 11:41 PM Dictated By: TRAE RAYMUNDO MD 40 Transcribed By: Mauricio SCHMIDT on 01/28/182340 COPY TO: TIFFANIE GUZMAN M.D. MAMMOGRAPHY DIGITAL SCR NQHER9330-89-27 15:36:00 [place] [address] Patient Name: SAUL TELLEZ MR #: [id number] : 1950 Age/Sex: 67/F Req #: [id number] Adm Physician: Ordered by: TIFFANIE GUZMAN M.D. Report #: [id number] Location: [facility] Room/Bed: Procedure: 1112-001 0 MG/MAMMOGRAPHY DIGITAL SCR BILAT Exam Date: 01/10/18 Exam Time: 1500 REPORT STATUS: S igned #[id number] - MGSCRBIL #BILATERAL DIGITAL SCREENING MAMMOGRAM W ITH CAD: 01/10/2018 CLINICAL: Routine screening. Comparison is made to exams dated: 01/05/2017 mammogram and 12/11/2014 mammogram - [facility]. Current study contains 4 films. The tissue of both nathaniel sts is predominantly fatty. Current study was also evaluated with a Computer Aided Detection (CAD) system. There are benign lymph nodes in both breasts. There also is a benign calcification in the left breast. No significant masses, calcifications, or other findings are seen in either breast. There has been no significant interval change. IMPRESSION: BENIGN There is no m ammographic evidence of malignancy. A 1 year screening mammogram is recommended . The patient will be notified by letter of the results. Andi alexis/gil:01/14/2018 12:18:[address]: Kalani LYLES(R)(M), [facility] letter sent: Mauricio montesared to Prior B9 Mammogram BI-RADS: 2 Benign Dictated By: ANDI ROD AM, DO 1218 Transcribed By: GIL on 01/14/18 1218 COPY TO: TIFFANIE GUZMAN M.D. MAMMOGRAPHY DIGITAL SCR BILAT [place] [address] Patient Name: SAUL TELLEZ MR #: [id number] : 1950 Age/Sex: 66/F Req #: [id number] Adm Physician: Ordered by: BROCK ROSARIO MD Report #: [id number] Location: MAMMO Room/Bed: Procedure: 9462-1254 MG/MAMMOGRAPHY LOKI MONTES Exam Date: 01/05/17 Exam Time: 1046 REPORT STATUS: Signed #[id number] - MGSCRBIL #BILATERAL DIGITAL SC REENING MAMMOGRAM WITH CAD: 01/05/2017 CLINICAL: Routine screening. Edgardo osvaldo is made to exams dated: 01/07/2016 mammogram, 12/11/2014 mammogram and mammogram - [facility]. Current study conta ins 5 films. The tissue of both breasts [...] recommended. The patient will be notified by nadine dimas of the results. Andi alexis/gil:2016 13:55:33 Inspector Tester Sorter: Kalani LYLES(R)(M), [facility] letter sent: Compared to Prior B9 Mammogram BI-RADS : 2 Benign Dictated By: ANDI CARTER DO 2772 Transcribed By: GIL on 01/05/17 8399 COPY TO : BEV ROSARIO MD
== END 2019-12-01 11:40 | disposition home or self-care (01) ==
LOC: ER 11:20
DX: G47.00 Insomnia, unspecified (principal); E11.9 Type 2 diabetes mellitus without complications; E78.5 Hyperlipidemia, unspecified; F41.9 Anxiety disorder, unspecified; Z96.651 Presence of right artificial knee joint
CPT/HCPCS: 99283

== ENCOUNTER → 2019-12-15 | Outpatient (CLI) | payer BC | LOC: MAMMO 10:47 | PROVIDERS: ATTEND Internal Medicine | DX: Z12.31 Encounter for screening mammogram for malignant neoplasm of breast (principal) | CPT/HCPCS: 77067 ==

== ENCOUNTER → 2020-04-04 | Outpatient (CLI) | payer MEDICARE, BC ==
[~2020-04-04] MED LIST changes: +GADOBENATE DIMEGLUMINE 1 ML IV ONE; +LORAZEPAM INJ 2 MG/ML VIAL ONE; +SODIUM CHLORIDE 0.9% 50ML 50 ML ONE
[2020-04-04 08:04] LABS: BLOOD UREA NITROGEN 14 mg/dL (7-26); BUN/CREATININE RATIO 18 (6-25); CREATININE, SERUM 0.78 mg/dL (0.57-1.11); EST GLOMERULAR FILTRATION RATE > 60 ML/MIN (60-)
== END ==
LOC: MRI 07:15
PROVIDERS: ATTEND Internal Medicine
DX: K76.9 Liver disease, unspecified (principal)
CPT/HCPCS: 36415; 74183; 82565; 84520; A9577; J2060

== ENCOUNTER → 2020-12-16 | Outpatient (CLI) | payer MEDICARE, BC ==
[~2020-12-16] MED LIST changes: -GADOBENATE DIMEGLUMINE 1 ML IV ONE; -LORAZEPAM INJ 2 MG/ML VIAL ONE; -SODIUM CHLORIDE 0.9% 50ML 50 ML ONE
== END ==
LOC: MAMMO 09:04
PROVIDERS: ATTEND Internal Medicine
DX: Z12.31 Encounter for screening mammogram for malignant neoplasm of breast (principal)
CPT/HCPCS: 77067

== ENCOUNTER → 2021-03-31 | Outpatient (CLI) | payer MEDICARE, BC | LOC: US 07:07 | PROVIDERS: ATTEND Internal Medicine Gastroenterology | DX: K76.0 Fatty (change of) liver, not elsewhere classified (principal) | CPT/HCPCS: 76705 ==

== ENCOUNTER → 2021-12-31 | Outpatient (CLI) | payer MEDICARE, BC | LOC: MAMMO 12:45 | PROVIDERS: ATTEND Internal Medicine | DX: Z12.31 Encounter for screening mammogram for malignant neoplasm of breast (principal) | CPT/HCPCS: 77067 ==

== ENCOUNTER 2022-07-22 13:48 | Emergency (ER) | payer MEDICARE, BC ==
[~2022-07-22] VITALS: Ht 160 cm; Wt 84.8 kg
[2022-07-22 13:56] VITALS: O2SAT 99
[2022-07-22] MEDS ORDERED: LACTATED RINGER'S 1,000 ML ONE (14:25)
[2022-07-22] MEDS ORDERED: LACTATED RINGER'S 1,000 ML INJ ONE (14:30)
[2022-07-22 14:34] LABS: BASOPHILS # (AUTO) 0.1 (0.0-0.1); BASOPHILS % 0.6 % (0.0-1.0); EOSINOPHILS # (AUTO) 0.2 (0.0-0.4); EOSINOPHILS % 2.4 % (0.0-6.0); HEMATOCRIT 40.8 % (34.2-44.1); HEMOGLOBIN 13.5 g/dL (12.0-16.0); LYMPHOCYTES # (AUTO) 2.8 (1.0-3.2); LYMPHOCYTES % 34.9 % (18.0-39.1); MEAN CORPUSCULAR HEMOGLOBIN 31.2 pg (28-32); MEAN CORPUSCULAR HGB CONC 33.1 g/dL (31-35); MEAN CORPUSCULAR VOLUME 94.2 fL (81-99); MONOCYTES # (AUTO) 0.5 (0.2-0.8); NEUTROPHILS # (AUTO) 4.4 (2.1-6.9); NEUTROPHILS % 55.6 % (38.7-80.0); PLATELET COUNT 309 x10e3/uL (140-360); RED BLOOD COUNT 4.33 x10e6/uL (3.6-5.1); RED CELL DISTRIBUTION WIDTH 12.8 % (11.7-14.4)
[2022-07-22 14:46] LABS: ALBUMIN 3.8 g/dL (3.5-5.0); ALBUMIN/GLOBULIN RATIO 1.1 (0.8-2.0); ANION GAP 16.2 mmol/L (8-16); CALCIUM 9.5 mg/dL (8.4-10.2); CREATININE, SERUM 0.83 mg/dL (0.57-1.11); POTASSIUM 4.2 mmol/L (3.5-5.1)
[2022-07-22 14:52] LABS: CLARITY,URINE CLEAR (CLEAR); COLOR,URINE YELLOW (YELLOW); KETONES,URINE NEGATIVE (NEGATIVE); LEUKOCYTE ESTERASE ,URINE NEGATIVE (NEGATIVE); NITRITE,URINE NEGATIVE (NEGATIVE); PROTEIN,URINE DIPSTICK NEGATIVE (NEGATIVE); URINE UROBILINOGEN 0.2 mg/dL (0.2 - 1)
[2022-07-22 15:03] LABS: EPITHELIAL CELLS,URINE FEW /LPF
== END 2022-07-22 15:49 | disposition home or self-care (01) ==
LOC: ER 14:23
DX: R19.7 Diarrhea, unspecified (principal); R10.9 Unspecified abdominal pain; E11.65 Type 2 diabetes mellitus with hyperglycemia
CPT/HCPCS: 36415; 80053; 81001; 82948; 83690; 85025; 93005; 99283; J7121

== ENCOUNTER 2022-07-28 21:05 | Emergency (ER) | payer MEDICARE, BC ==
[~2022-07-28] VITALS: Ht 160 cm; Wt 84.8 kg
[2022-07-28] MEDS ORDERED: ONDANSETRON HCL INJ 2MG/ML 2ML 2 MG/ML VIAL IV STA (21:24)
[2022-07-28] MEDS ORDERED: MECLIZINE HCL 12.5 MG TAB PO ONE (21:30)
[2022-07-28 21:37] LABS: CLARITY,URINE CLEAR (CLEAR); COLOR,URINE YELLOW (YELLOW); KETONES,URINE NEGATIVE (NEGATIVE); LEUKOCYTE ESTERASE ,URINE TRACE (NEGATIVE); NITRITE,URINE NEGATIVE (NEGATIVE); PROTEIN,URINE DIPSTICK NEGATIVE (NEGATIVE); URINE UROBILINOGEN 0.2 mg/dL (0.2 - 1)
[2022-07-28 21:48] LABS: BASOPHILS # (AUTO) 0.1 (0.0-0.1); BASOPHILS % 1.6 % (0.0-1.0); EOSINOPHILS # (AUTO) 0.1 (0.0-0.4); EOSINOPHILS % 1.8 % (0.0-6.0); HEMATOCRIT 40.7 % (34.2-44.1); HEMOGLOBIN 13.6 g/dL (12.0-16.0); LYMPHOCYTES # (AUTO) 2.7 (1.0-3.2); LYMPHOCYTES % 42.7 % (18.0-39.1); MEAN CORPUSCULAR HEMOGLOBIN 31.7 pg (28-32); MEAN CORPUSCULAR HGB CONC 33.4 g/dL (31-35); MEAN CORPUSCULAR VOLUME 94.9 fL (81-99); MONOCYTES # (AUTO) 0.4 (0.2-0.8); MONOCYTES % 6.1 % (4.4-11.3); NEUTROPHILS % 47.6 % (38.7-80.0); PLATELET COUNT 265 x10e3/uL (140-360); RED BLOOD COUNT 4.29 x10e6/uL (3.6-5.1); RED CELL DISTRIBUTION WIDTH 12.9 % (11.7-14.4)
[2022-07-28 21:50] LABS: ALANINE AMINOTRANSFERASE 76 IU/L (0-55); ALBUMIN 3.8 g/dL (3.5-5.0); ALBUMIN/GLOBULIN RATIO 1.2 (0.8-2.0); ALKALINE PHOSPHATASE 118 IU/L (40-150); BACTERIA,URINE FEW /HPF; BLOOD UREA NITROGEN 12 mg/dL (7-26); BUN/CREATININE RATIO 17 (6-25); CALCIUM 9.7 mg/dL (8.4-10.2); CARBON DIOXIDE 25 mmol/L (22-29); CHLORIDE 103 mmol/L (98-107); CREATINE KINASE 47 IU/L (29-168); CREATININE, SERUM 0.71 mg/dL (0.57-1.11); EPITHELIAL CELLS,URINE RARE /LPF; GLUCOSE 179 mg/dL (74-118); RBC,URINE 0-5 /HPF (0-5); SODIUM 137 mmol/L (136-145)
[2022-07-28] MEDS ORDERED: SODIUM CHLORIDE 0.9% 100 ML ONE (21:54)
[2022-07-28] MEDS ORDERED: IOPAMIDOL 370 MG/ML 100 ML INFUS..BTL INJ ONE (21:54)
[2022-07-28] MEDS ORDERED: CEFDINIR300 MG PO (23:04)
[2022-07-28] MEDS ORDERED: ANTIVERT25 M1 PO (23:04)
[2022-07-28] MEDS ORDERED: ONDANSETRON ODT4 MG PO (23:04)
[2022-07-28 23:19] VITALS: BP 134/68; O2SAT 97
== END 2022-07-28 23:16 | disposition home or self-care (01) ==
LOC: ER 21:16
DX: H81.10 Benign paroxysmal vertigo, unspecified ear (principal); N39.0 Urinary tract infection, site not specified; R11.2 Nausea with vomiting, unspecified; E11.65 Type 2 diabetes mellitus with hyperglycemia; G47.9 Sleep disorder, unspecified; Z96.651 Presence of right artificial knee joint; R94.31 Abnormal electrocardiogram [ECG] [EKG]
CPT/HCPCS: 36415; 70496; 70498; 80053; 81001; 82550; 82553; 84484; 85025; 93005; 99284; J2405; J7050; J8597; Q9967

== ENCOUNTER → 2023-01-01 | Outpatient (REF) | payer MEDICARE, BC ==
[~2023-01-01] MED LIST changes: +ANTIVERT25 M1 PO; +CEFDINIR300 MG PO; +ONDANSETRON ODT4 MG PO
== END ==
LOC: MAMMO 10:50
PROVIDERS: ATTEND Family Medicine
DX: Z12.31 Encounter for screening mammogram for malignant neoplasm of breast (principal)
CPT/HCPCS: 77067

== ENCOUNTER → 2024-01-03 | Outpatient (REF) | payer MEDICARE, BC | LOC: MAMMO 14:13 | PROVIDERS: ATTEND Family Medicine | DX: Z12.31 Encounter for screening mammogram for malignant neoplasm of breast (principal) | CPT/HCPCS: 77067 ==

== ENCOUNTER 2024-12-05 21:15 | Inpatient (IN) | payer MEDICARE, BC ==
[~2024-12-05] VITALS: Ht 160 cm; Wt 79.4 kg
[2024-12-05] MEDS ORDERED: ACETAMINOPHEN 325 MG TAB PO STA (21:24)
[2024-12-05 22:15] LABS: BASOPHILS % 0.4 % (0.0-1.0); EOSINOPHILS % 0.0 % (0.0-6.0); LYMPHOCYTES % 9.6 % (18.0-39.1); MONOCYTES % 6.0 % (4.4-11.3); NEUTROPHILS % 83.8 % (38.7-80.0); RED CELL DISTRIBUTION WIDTH 12.5 % (11.7-14.4)
[2024-12-05] MEDS ORDERED: ACETAMINOPHEN 1000 MG/100 ML 100 ML IV ONE (22:20)
[2024-12-05 22:36] LABS: EST GLOMERULAR FILTRATION RATE 90.0 ML/MIN (>=60)
[2024-12-05] MEDS: SODIUM CHLORIDE 0.9% 1000ML 1,000 ML IV STA (22:40)
[2024-12-05] MEDS: ACETAMINOPHEN 1000 MG/100 ML IV STA (22:41)
[2024-12-05 23:01] LABS: CORONAVIRUS COVID-19 AG NEGATIVE (NEGATIVE)
[2024-12-05 23:32] LABS: STREPTOCOCCUS GRP A ANTIGEN NEGATIVE (NEGATIVE)
[2024-12-05 23:56] VITALS: TEMP 98.8
[2024-12-06] VITALS (16 sets, daily range): BP systolic 135–160; BP diastolic 66–82; PULSE 85–105; RESP 16–21; TEMP 97.6–101.7; O2SAT 94–100
[2024-12-06 00:26] LABS: LEUKOCYTE ESTERASE ,URINE NEGATIVE (NEGATIVE); PROTEIN,URINE DIPSTICK TRACE (NEGATIVE)
[2024-12-06 00:27] LABS: URINE UROBILINOGEN 0.2 mg/dL (0.2 - 1)
[2024-12-06 00:47] LABS: EPITHELIAL CELLS,URINE RARE /LPF; WBC,URINE (MAN) 0-5 /HPF (0-5)
[2024-12-06] MEDS: SODIUM CHLORIDE 0.9% 1000ML 1,000 ML IV SCH (02:05)
[2024-12-06] MEDS: ACETAMINOPHEN 325 MG TAB PO PRN (06:41)
[2024-12-06 08:50] LABS: BASOPHILS % 1.0 % (0.0-1.0); EOSINOPHILS % 0.0 % (0.0-6.0); LYMPHOCYTES % 14.9 % (18.0-39.1); MONOCYTES % 7.0 % (4.4-11.3); NEUTROPHILS % 76.6 % (38.7-80.0); RED CELL DISTRIBUTION WIDTH 12.5 % (11.7-14.4)
[2024-12-06 09:24] LABS: EST GLOMERULAR FILTRATION RATE 90.0 ML/MIN (>=60)
[2024-12-06] MEDS ORDERED: CLONAZEPAM 1 MG TAB PO PRN (16:00)
[2024-12-07] VITALS (10 sets, daily range): BP systolic 132–165; BP diastolic 64–95; PULSE 85–104; RESP 17–21; TEMP 98.1–103; O2SAT 92–98
[2024-12-07] MEDS ORDERED: DEXTROSE 50% SYRINGE 50 ML IV PRN (12:15)
[2024-12-07] MEDS ORDERED: IOPAMIDOL 370 MG/ML 100 ML INFUS..BTL INJ ONE (14:29)
[2024-12-07] MEDS: INSULIN REGULAR, HUMAN 100 UNIT/1 ML SQ SCH (17:31)
[2024-12-07] MEDS: METFORMIN HCL 500 MG TAB CR PO ONE (17:40)
[2024-12-08 03:36] VITALS: BP 132/70; PULSE 86; RESP 18; TEMP 99.3; O2SAT 94
[2024-12-08 07:31] VITALS: BP 138/88; PULSE 89; RESP 18; TEMP 101.1; O2SAT 94
[2024-12-08 07:32] LABS: CHOL/HDL RATIO 5.6 (3.0-3.6); EST GLOMERULAR FILTRATION RATE 95.0 ML/MIN (>=60); LDL CHOLESTEROL 55.0 MG/DL (60-130); PHOSPHORUS 2.1 MG/DL (2.3-4.7)
[2024-12-08 08:17] LABS: BASOPHILS % 0.4 % (0.0-1.0); EOSINOPHILS % 0.0 % (0.0-6.0); LYMPHOCYTES % 26.3 % (18.0-39.1); MONOCYTES % 7.5 % (4.4-11.3); NEUTROPHILS % 64.9 % (38.7-80.0); RED CELL DISTRIBUTION WIDTH 12.5 % (11.7-14.4)
[2024-12-08] MEDS: METFORMIN HCL 500 MG TAB PO SCH (08:34)
[2024-12-08 11:38] LABS: LYMPHOCYTES % (MANUAL) 21 % (19-48); MYELOCYTES % (MANUAL) 1 % (0-0); NEUTROPHILS % (MANUAL) 78 % (40-74); PLATELET ESTIMATE MARKEDLY DECREASED; PLATELET MORPHOLOGY COMMENT NORMAL
[2024-12-08 11:39] LABS: RBC MORPHOLOGY COMMENT NORMAL
[2024-12-08 12:00] VITALS: BP 138/76; PULSE 94; RESP 17; TEMP 98.2; O2SAT 96
[2024-12-08] MEDS: POTASSIUM CHLORIDE 20 MEQ TAB CR PO ONE (15:09)
[2024-12-08 16:00] VITALS: BP 135/92; PULSE 93; RESP 17; TEMP 100.3; O2SAT 91
[2024-12-08 20:00] VITALS: BP 149/91; PULSE 91; RESP 16; TEMP 97.9; O2SAT 93
[2024-12-08 21:00] VITALS: BP 149/91; PULSE 91; RESP 16; TEMP 97.9; O2SAT 93
[2024-12-09] VITALS (8 sets, daily range): BP systolic 120–155; BP diastolic 78–86; PULSE 90–98; RESP 16–20; TEMP 97.3–98.6; O2SAT 91–97
[2024-12-09 11:10] LABS: HIV 1&2 AB SCREEN NEG (NONREACTIVE); HIV- 1 P24 AG SCREEN NEG (NONREACTIVE)
[2024-12-10] VITALS (7 sets, daily range): BP systolic 117–155; BP diastolic 79–93; PULSE 77–112; RESP 18–20; TEMP 97–98.5; O2SAT 93–100
[2024-12-11] VITALS (7 sets, daily range): BP systolic 133–147; BP diastolic 65–89; PULSE 74–93; RESP 16–20; TEMP 97.5–98.3; O2SAT 93–99
[2024-12-11 05:47] LABS: BASOPHILS % 0.7 % (0.0-1.0); EOSINOPHILS % 0.2 % (0.0-6.0); LYMPHOCYTES % 65.4 % (18.0-39.1); MONOCYTES % 6.4 % (4.4-11.3); NEUTROPHILS % 26.3 % (38.7-80.0); RED CELL DISTRIBUTION WIDTH 12.7 % (11.7-14.4)
[2024-12-11 06:21] LABS: EST GLOMERULAR FILTRATION RATE 97.0 ML/MIN (>=60)
[2024-12-11 08:43] LABS: LYMPHOCYTES % (MANUAL) 46 % (19-48); MONOCYTES % (MANUAL) 9 % (3.4-9.0); NEUTROPHILS % (MANUAL) 38 % (40-74); REACTIVE LYMPHOCYTES 7
[2024-12-11 08:45] LABS: PLATELET ESTIMATE MARKEDLY DECREASED; PLATELET MORPHOLOGY COMMENT NORMAL
[2024-12-11] MEDS: POTASSIUM CHLORIDE 20 MEQ TAB CR PO STA ×2 (12:59→13:37)
[2024-12-11] MEDS: SODIUM CHLORIDE 0.9% 1000ML 1,000 ML IV SCH (15:30)
[2024-12-11] MEDS ORDERED: ONDANSETRON HCL INJ 2MG/ML 2ML 2 MG/ML VIAL IV PRN (15:45)
[2024-12-12] VITALS: BP 133/65; PULSE 77; RESP 18; TEMP 98.3; O2SAT 99
[2024-12-12 09:00] VITALS: BP 133/65; PULSE 77; RESP 18; TEMP 98.3; O2SAT 99
[2024-12-12] MEDS: MULTIVITAMINS/MINERALS TAB PO SCH (09:39)
[2024-12-12 10:18] VITALS: BP 145/95; PULSE 87; RESP 19; TEMP 97.9; O2SAT 100
[2024-12-12 15:29] VITALS: BP 145/86; PULSE 91; RESP 19; TEMP 98; O2SAT 98
[2024-12-12 16:12] LABS: INR 0.96
[2024-12-12 16:32] LABS: BASOPHILS % 0.6 % (0.0-1.0); EOSINOPHILS % 1.4 % (0.0-6.0); LYMPHOCYTES % 51.6 % (18.0-39.1); MONOCYTES % 7.9 % (4.4-11.3); NEUTROPHILS % 37.8 % (38.7-80.0); RED CELL DISTRIBUTION WIDTH 13.3 % (11.7-14.4)
[2024-12-12 20:12] VITALS: BP 158/76; PULSE 85; RESP 16; TEMP 97.3; O2SAT 100
[2024-12-12] MEDS: INSULIN GLARGINE 100 UNITS/ML VIAL SQ SCH (21:25)
[2024-12-13] VITALS: BP 158/76; PULSE 85; RESP 16; TEMP 97.3; O2SAT 100
[2024-12-13 05:11] VITALS: BP 140/68; PULSE 79; RESP 18; TEMP 97.2; O2SAT 100
[2024-12-13 07:56] VITALS: BP 140/85; PULSE 91; RESP 18; TEMP 97.6; O2SAT 100
[2024-12-13] MEDS ORDERED: VITAMIN B-121000 MCG PO (09:17)
[2024-12-13 09:25] VITALS: BP 140/85; PULSE 91; RESP 18; TEMP 97.6; O2SAT 100
[2024-12-13 11:34] VITALS: BP 160/84; PULSE 90; RESP 17; TEMP 97.8; O2SAT 99
[2024-12-13 15:29] VITALS: BP 162/80; PULSE 88; RESP 18; TEMP 97.9; O2SAT 100
[2024-12-13] MEDS: INSULIN LISPRO 100 UNIT/1 ML 3ML VIAL SQ SCH (17:20)
[2024-12-13] MEDS ORDERED: MULTIVITAMIN1 EACH PO (17:26)
[2024-12-13] MEDS ORDERED: ACETAMINOPHEN325 M1 PO (17:26)
[2024-12-13] MEDS ORDERED: HUMULIN-R100 UNITS/ SC (18:55)
[2024-12-13] MEDS ORDERED: LANTUS 3ML100 UNITS/ SC (18:55)
[2024-12-13] MEDS ORDERED: HUMALOG100 UNIT/3 SC (18:55)
[2024-12-13] MEDS ORDERED: INSULIN GLARGINE 100 UNITS/ML VIAL SQ SCH (21:00)
[2024-12-22 08:46] LABS: TOXOPLASMA IGG ANTIBODY <3.0
[2024-12-22 08:47] LABS: TOXOPLASMA IGM ANTIBODY <3.0
== END 2024-12-13 19:32 | disposition home or self-care (01) | DRG 871 ==
LOC: ER 21:20 → ERHOLD 23:38 → MED/SURG3 12-06 01:57
PROVIDERS: ADMIT Internal Medicine; ATTEND Internal Medicine
PROC: 3E0333Z Introduction of Anti-inflammatory into Peripheral Vein, Percutaneous Approach (ICD-10-PCS; principal; 2024-12-05)
DX: A41.9 Sepsis, unspecified organism (principal); G92.8 Other toxic encephalopathy; E87.21 Acute metabolic acidosis; E87.1 Hypo-osmolality and hyponatremia; R65.20 Severe sepsis without septic shock; Z11.52 Encounter for screening for COVID-19; D69.59 Other secondary thrombocytopenia; Z99.81 Dependence on supplemental oxygen; E11.65 Type 2 diabetes mellitus with hyperglycemia; E78.5 Hyperlipidemia, unspecified; I10 Essential (primary) hypertension; F32.A Depression, unspecified; G47.33 Obstructive sleep apnea (adult) (pediatric); R53.81 Other malaise; M19.90 Unspecified osteoarthritis, unspecified site; Z79.84 Long term (current) use of oral hypoglycemic drugs
CPT/HCPCS: 36415; 70450; 71045; 74177; 80048; 80053; 80061; 81001; 82550; 82948; 83036; 83518; 83605; 83690; 83735; 83880; 84100; 84439; 84443; 84484; 85025; 85379; 85384; 85610; 85730; 86777; 86778; 86790; 87040; 87070; 87086; 87390; 93005; 94799; 99284; G0433; G0435; J2543; J7030; Q9967